=== PATIENT | female | born 1980 | race Caucasian/White ===

== ENCOUNTER 2017-06-27 04:23 | Inpatient (IN) | payer BC ==
[2017-06-27] MEDS ORDERED: DOCUSATE SODIUM 100 MG CAP PO (06:00)
[2017-06-27] MEDS: LIDOCAINE/MYLANTA 40 ML BTL PO (06:00)
[2017-06-27] MEDS ORDERED: NACL 0.9% 3 ML SYG IV (06:00)
[2017-06-27] MEDS: SOD CHLORIDE 0.9% 1,000 ML IV ×3 (06:32→22:06)
[2017-06-27] MEDS: PIPER-TAZO 3.375 GM IV (PMX) 100 ML IVPB (06:33)
[2017-06-27 06:44] LABS: ADD MAN DIFF? NO
[2017-06-27 06:50] LABS: WHITE BLOOD COUNT 6.3 10^3/ul (4.8-10.8)
[2017-06-27 06:50] LABS: BASOPHILS % 0.6 % (0.0-2.0); EOSINOPHILS # 0.1 10^3/ul (0.0-0.5); EOSINOPHILS % 1.4 % (0.0-7.0); HEMATOCRIT 34.4 % (37.0-47.0); HEMOGLOBIN 11.8 g/dl (12.0-16.0); LYMPHOCYTES # 2.7 10^3/ul (0.8-2.9); LYMPHOCYTES % 41.8 % (15.0-51.0); MEAN CORPUSCULAR HEMOGLOBIN 31.9 pg (29.0-33.0); MEAN CORPUSCULAR HGB CONC 34.3 g/dl (32.0-37.0); MEAN PLATELET VOLUME 10.8 fl (7.4-10.4); MONOCYTE # 0.6 10^3/ul (0.3-0.9); MONOCYTES % 8.7 % (0.0-11.0); NEUTROPHILS % 47.3 % (39.0-77.0); PLATELET COUNT 265 10^3/UL (140-415); RED CELL DISTRIBUTION WIDTH 12.7 % (11.5-14.5)
[2017-06-27 07:00] LABS: HEMOGLOBIN A1C 5.1 % (0-5.9)
[2017-06-27 07:09] LABS: ALANINE AMINOTRANSFERASE 69 IU/L (13-69); ALBUMIN 3.4 g/dl (3.3-4.9); ALBUMIN/GLOBULIN RATIO 1.06; ALKALINE PHOSPHATASE 336 IU/L (42-121); ANION GAP 11 (8-16); ASPARTATE AMINO TRANSFERASE 47 IU/L (15-46); BILIRUBIN,INDIRECT 0.4 mg/dl (0-1.1); BILIRUBIN,TOTAL 0.4 mg/dl (0.2-1.3); BLOOD UREA NITROGEN 13 mg/dl (7-20); CALCIUM 8.7 mg/dl (8.4-10.2); CARBON DIOXIDE 28 mmol/L (21-31); CHLORIDE 109 mmol/L (97-110); CREATININE 0.77 mg/dl (0.44-1.00); GLUCOSE 95 mg/dl (70-220); POTASSIUM 3.7 mmol/L (3.5-5.1); SODIUM 144 mmol/L (135-144); TOTAL PROTEIN 6.6 g/dl (6.1-8.1)
[2017-06-27] MEDS: HYDROmorphONE 0.5 MG/0.5 ML SYG IV ×3 (08:47→22:06)
[2017-06-27 09:05] LABS: GAMMA GLUTAMYL TRANSPEPTIDASE 583 IU/L (0-50); LIPASE 47 U/L (23-300)
[2017-06-27 19:32] LABS: PROTIME 13.3 Sec (11.9-14.9)
[2017-06-27 20:08] LABS: ALPHA FETOPROTEIN 3.25 IU/L (0.00-7.21)
[2017-06-27 20:09] LABS: CANCER ANTIGEN 19-9 < 1.4 U/ml (0.0-37.0)
[2017-06-28 05:13] LABS: ADD MAN DIFF? NO
[2017-06-28 05:18] LABS: WHITE BLOOD COUNT 4.6 10^3/ul (4.8-10.8)
[2017-06-28 05:18] LABS: BASOPHILS % 0.6 % (0.0-2.0); EOSINOPHILS # 0.1 10^3/ul (0.0-0.5); EOSINOPHILS % 2.6 % (0.0-7.0); HEMATOCRIT 33.6 % (37.0-47.0); HEMOGLOBIN 11.3 g/dl (12.0-16.0); LYMPHOCYTES # 2.2 10^3/ul (0.8-2.9); LYMPHOCYTES % 47.2 % (15.0-51.0); MEAN CORPUSCULAR HGB CONC 33.6 g/dl (32.0-37.0); MEAN CORPUSCULAR VOLUME 95.2 fl (82.0-101.0); MEAN PLATELET VOLUME 10.4 fl (7.4-10.4); MONOCYTE # 0.4 10^3/ul (0.3-0.9); MONOCYTES % 8.6 % (0.0-11.0); NEUTROPHIL # 1.9 10^3/ul (1.6-7.5); NEUTROPHILS % 40.8 % (39.0-77.0); PLATELET COUNT 229 10^3/UL (140-415); RED BLOOD COUNT 3.53 10^6/ul (4.20-5.40); RED CELL DISTRIBUTION WIDTH 12.4 % (11.5-14.5)
[2017-06-28 05:35] LABS: MAGNESIUM 1.9 mg/dl (1.7-2.5)
[2017-06-28 05:41] LABS: ALANINE AMINOTRANSFERASE 58 IU/L (13-69); ALBUMIN 3.1 g/dl (3.3-4.9); ALBUMIN/GLOBULIN RATIO 1.06; ALKALINE PHOSPHATASE 280 IU/L (42-121); ANION GAP 14 (8-16); ASPARTATE AMINO TRANSFERASE 31 IU/L (15-46); BILIRUBIN,INDIRECT 0.6 mg/dl (0-1.1); BILIRUBIN,TOTAL 0.6 mg/dl (0.2-1.3); BLOOD UREA NITROGEN 13 mg/dl (7-20); CALCIUM 8.7 mg/dl (8.4-10.2); CARBON DIOXIDE 25 mmol/L (21-31); CHLORIDE 108 mmol/L (97-110); CREATININE 0.75 mg/dl (0.44-1.00); GLUCOSE 85 mg/dl (70-220); POTASSIUM 4.5 mmol/L (3.5-5.1); SODIUM 142 mmol/L (135-144)
[2017-06-28] MEDS ORDERED: METOCLOPRAMIDE 10 MG INJ (07:00)
[2017-06-28] MEDS: SOD CHLORIDE 0.9% 1,000 ML IV (11:40)
[2017-06-28] MEDS: HYDROmorphONE 0.5 MG/0.5 ML SYG IV ×3 (11:41→21:27)
[2017-06-28] MEDS: CIPROFLOXACIN 400MG/D5W 200 ML IVPB ×2 (13:06→21:27)
[2017-06-28] MEDS: metroNIDAZOLE 500 MG/NS (PMX) 100 ML IVPB ×2 (14:25→21:58)
[2017-06-28] MEDS ORDERED: LIDOCAINE 2% (SDV) 5 ML INJ (18:02)
[2017-06-28] MEDS ORDERED: PROPOFOL 20 ML (18:02)
[2017-06-28] MEDS ORDERED: SUCCINYLCHOLINE CHLORIDE 100 MG/5 ML SYG IV (18:02)
[2017-06-28] MEDS ORDERED: MEPERIDINE 100 MG INJ (18:02)
[2017-06-28] MEDS ORDERED: NEOSTIGMINE 3 MG/3 ML SYRINGE (18:02)
[2017-06-28] MEDS ORDERED: ROCURONIUM 50 MG INJ (18:02)
[2017-06-28] MEDS ORDERED: GLYCOPYRROLATE 0.4 MG INJ (18:02)
[2017-06-28] MEDS ORDERED: EPHEDrine SULFATE 50 MG/5 ML SYG IV (19:30)
[2017-06-28] MEDS ORDERED: FENTAnyl 50 MCG/ML VIAL IV ×3 (19:30)
[2017-06-28] MEDS ORDERED: HYDROmorphONE (0.2 MG/ML) 10ML SYG IV ×3 (19:30)
[2017-06-28] MEDS ORDERED: LABETALOL HCL 20MG INJ IV (19:30)
[2017-06-28] MEDS ORDERED: ONDANSETRON 4 MG INJ IV (19:30)
[2017-06-28] MEDS ORDERED: hydrALAzine 20 MG INJ IV (19:30)
[2017-06-28] MEDS ORDERED: OXYCODONE/ACETAMINOPHEN (5/325) TAB PO ×2 (19:30)
[2017-06-28] MEDS ORDERED: MEPERIDINE 25 MG INJ IV (19:30)
[2017-06-28] MEDS ORDERED: METOCLOPRAMIDE 10 MG INJ IV (19:30)
[2017-06-28] MEDS ORDERED: MIDAZOLAM 1 MG/ML 2 ML INJ IV (19:30)
[2017-06-28] MEDS ORDERED: DIPHENHYDRAMINE 50 MG INJ IV (19:30)
[2017-06-28] MEDS ORDERED: NALOXONE (0.4 MG/ML) INJ (20:08)
[2017-06-28] MEDS: ONDANSETRON 4 MG INJ IV ×3 (20:26→22:30)
[2017-06-29] MEDS: HYDROmorphONE 0.5 MG/0.5 ML SYG IV ×7 (00:38→23:49)
[2017-06-29 05:01] LABS: ADD MAN DIFF? NO
[2017-06-29 05:05] LABS: ABNORMAL IP MESSAGE 1; BASOPHILS % 0.1 % (0.0-2.0); HEMATOCRIT 35.5 % (37.0-47.0); HEMOGLOBIN 12.3 g/dl (12.0-16.0); LYMPHOCYTES # 0.5 10^3/ul (0.8-2.9); LYMPHOCYTES % 5.3 % (15.0-51.0); MEAN CORPUSCULAR HEMOGLOBIN 31.9 pg (29.0-33.0); MEAN CORPUSCULAR HGB CONC 34.6 g/dl (32.0-37.0); MEAN PLATELET VOLUME 10.2 fl (7.4-10.4); MONOCYTE # 0.4 10^3/ul (0.3-0.9); MONOCYTES % 3.8 % (0.0-11.0); NEUTROPHIL # 9.3 10^3/ul (1.6-7.5); NEUTROPHILS % 90.4 % (39.0-77.0); PLATELET COUNT 260 10^3/UL (140-415); RED BLOOD COUNT 3.86 10^6/ul (4.20-5.40); RED CELL DISTRIBUTION WIDTH 11.8 % (11.5-14.5)
[2017-06-29 05:05] LABS: WHITE BLOOD COUNT 10.3 10^3/ul (4.8-10.8)
[2017-06-29] MEDS: metroNIDAZOLE 500 MG/NS (PMX) 100 ML IVPB ×3 (05:08→21:06)
[2017-06-29 05:15] LABS: POSITIVE DIFF @See below
[2017-06-29 05:24] LABS: ALANINE AMINOTRANSFERASE 70 IU/L (13-69); ALBUMIN 3.6 g/dl (3.3-4.9); ALBUMIN/GLOBULIN RATIO 1.09; ALKALINE PHOSPHATASE 310 IU/L (42-121); ANION GAP 19 (8-16); ASPARTATE AMINO TRANSFERASE 52 IU/L (15-46); BILIRUBIN,INDIRECT 0.5 mg/dl (0-1.1); BILIRUBIN,TOTAL 0.5 mg/dl (0.2-1.3); BLOOD UREA NITROGEN 11 mg/dl (7-20); CALCIUM 8.4 mg/dl (8.4-10.2); CARBON DIOXIDE 21 mmol/L (21-31); CHLORIDE 103 mmol/L (97-110); CREATININE 0.67 mg/dl (0.44-1.00); GLUCOSE 118 mg/dl (70-220); POTASSIUM 4.5 mmol/L (3.5-5.1); SODIUM 138 mmol/L (135-144); TOTAL PROTEIN 6.9 g/dl (6.1-8.1)
[2017-06-29 05:26] LABS: MAGNESIUM 1.6 mg/dl (1.7-2.5)
[2017-06-29] MEDS: ONDANSETRON 4 MG INJ IV (07:58)
[2017-06-29] MEDS: CIPROFLOXACIN 400MG/D5W 200 ML IVPB ×2 (07:58→21:06)
[2017-06-29] MEDS: METOCLOPRAMIDE 10 MG INJ IV ×3 (12:42→23:49)
[2017-06-29] MEDS: PANTOPRAZOLE 40 MG INJ IV ×2 (13:01→20:37)
[2017-06-29] MEDS: SOD CHLORIDE 0.9% 1,000 ML IV ×2 (14:16→23:49)
[2017-06-30] MEDS: HYDROmorphONE 0.5 MG/0.5 ML SYG IV ×6 (04:33→23:57)
[2017-06-30] MEDS: ONDANSETRON 4 MG INJ IV (04:33)
[2017-06-30] MEDS: metroNIDAZOLE 500 MG/NS (PMX) 100 ML IVPB ×3 (05:29→22:21)
[2017-06-30] MEDS: PANTOPRAZOLE 40 MG INJ IV ×2 (05:29→17:16)
[2017-06-30] MEDS: METOCLOPRAMIDE 10 MG INJ IV ×4 (05:29→23:57)
[2017-06-30 05:34] LABS: ADD MAN DIFF? NO
[2017-06-30 05:42] LABS: WHITE BLOOD COUNT 12.5 10^3/ul (4.8-10.8)
[2017-06-30 05:42] LABS: BASOPHILS % 0.1 % (0.0-2.0); HEMOGLOBIN 12.3 g/dl (12.0-16.0); LYMPHOCYTES # 0.6 10^3/ul (0.8-2.9); LYMPHOCYTES % 5.1 % (15.0-51.0); MEAN CORPUSCULAR HEMOGLOBIN 31.9 pg (29.0-33.0); MEAN CORPUSCULAR HGB CONC 34.2 g/dl (32.0-37.0); MEAN CORPUSCULAR VOLUME 93.3 fl (82.0-101.0); MEAN PLATELET VOLUME 10.3 fl (7.4-10.4); MONOCYTE # 0.8 10^3/ul (0.3-0.9); MONOCYTES % 6.1 % (0.0-11.0); NEUTROPHILS % 88.2 % (39.0-77.0); PLATELET COUNT 246 10^3/UL (140-415); RED BLOOD COUNT 3.86 10^6/ul (4.20-5.40); RED CELL DISTRIBUTION WIDTH 12.4 % (11.5-14.5)
[2017-06-30 06:00] LABS: MAGNESIUM 1.7 mg/dl (1.7-2.5)
[2017-06-30 06:11] LABS: ALANINE AMINOTRANSFERASE 54 IU/L (13-69); ALBUMIN 3.2 g/dl (3.3-4.9); ALBUMIN/GLOBULIN RATIO 1.03; ALKALINE PHOSPHATASE 264 IU/L (42-121); ANION GAP 11 (8-16); ASPARTATE AMINO TRANSFERASE 32 IU/L (15-46); BILIRUBIN,INDIRECT 0.5 mg/dl (0-1.1); BILIRUBIN,TOTAL 0.5 mg/dl (0.2-1.3); BLOOD UREA NITROGEN 6 mg/dl (7-20); CALCIUM 8.1 mg/dl (8.4-10.2); CARBON DIOXIDE 28 mmol/L (21-31); CHLORIDE 106 mmol/L (97-110); CREATININE 0.64 mg/dl (0.44-1.00); GLUCOSE 113 mg/dl (70-220); POTASSIUM 3.9 mmol/L (3.5-5.1); SODIUM 141 mmol/L (135-144); TOTAL PROTEIN 6.3 g/dl (6.1-8.1)
[2017-06-30] MEDS: CIPROFLOXACIN 400MG/D5W 200 ML IVPB ×2 (08:25→21:17)
[2017-06-30] MEDS: BARIUM SULF 2% 450 ML BTL (BERRY SMOOTHIE) PO (10:04)
[2017-06-30] MEDS: SOD CHLORIDE 0.9% 100 ML (13:55)
[2017-06-30] MEDS: IOHEXOL 300MG/ML 150 ML BTL (13:55)
[2017-06-30 15:41] LABS: AMYLASE 2084 U/L (11-123)
[2017-06-30] MEDS: SOD CHLORIDE 0.9% 1,000 ML IV (15:55)
[2017-06-30 15:57] LABS: LIPASE 6389 U/L (23-300)
[2017-07-01] MEDS: HYDROmorphONE 0.5 MG/0.5 ML SYG IV ×5 (04:33→21:23)
[2017-07-01] MEDS: SOD CHLORIDE 0.9% 1,000 ML IV ×3 (04:33→19:26)
[2017-07-01 05:19] LABS: ADD MAN DIFF? NO
[2017-07-01 05:22] LABS: BASOPHILS % 0.1 % (0.0-2.0); EOSINOPHILS % 0.2 % (0.0-7.0); HEMOGLOBIN 11.8 g/dl (12.0-16.0); LYMPHOCYTES % 9.4 % (15.0-51.0); MEAN CORPUSCULAR HEMOGLOBIN 31.9 pg (29.0-33.0); MEAN CORPUSCULAR HGB CONC 33.7 g/dl (32.0-37.0); MEAN CORPUSCULAR VOLUME 94.6 fl (82.0-101.0); MEAN PLATELET VOLUME 10.5 fl (7.4-10.4); MONOCYTE # 0.7 10^3/ul (0.3-0.9); MONOCYTES % 6.7 % (0.0-11.0); NEUTROPHIL # 8.9 10^3/ul (1.6-7.5); NEUTROPHILS % 83.1 % (39.0-77.0); PLATELET COUNT 217 10^3/UL (140-415); RED CELL DISTRIBUTION WIDTH 12.4 % (11.5-14.5)
[2017-07-01 05:22] LABS: WHITE BLOOD COUNT 10.7 10^3/ul (4.8-10.8)
[2017-07-01] MEDS: PANTOPRAZOLE 40 MG INJ IV ×2 (05:26→18:18)
[2017-07-01] MEDS: METOCLOPRAMIDE 10 MG INJ IV ×3 (05:26→17:37)
[2017-07-01] MEDS: metroNIDAZOLE 500 MG/NS (PMX) 100 ML IVPB ×3 (05:26→21:25)
[2017-07-01 05:44] LABS: MAGNESIUM 1.8 mg/dl (1.7-2.5)
[2017-07-01 05:48] LABS: ALANINE AMINOTRANSFERASE 45 IU/L (13-69); ALKALINE PHOSPHATASE 226 IU/L (42-121); ANION GAP 10 (8-16); ASPARTATE AMINO TRANSFERASE 28 IU/L (15-46); BILIRUBIN,INDIRECT 0.7 mg/dl (0-1.1); BILIRUBIN,TOTAL 0.7 mg/dl (0.2-1.3); BLOOD UREA NITROGEN 4 mg/dl (7-20); CALCIUM 7.8 mg/dl (8.4-10.2); CARBON DIOXIDE 28 mmol/L (21-31); CHLORIDE 104 mmol/L (97-110); CREATININE 0.57 mg/dl (0.44-1.00); GLUCOSE 94 mg/dl (70-220); POTASSIUM 3.3 mmol/L (3.5-5.1); SODIUM 139 mmol/L (135-144)
[2017-07-01 05:49] LABS: LIPASE 1352 U/L (23-300)
[2017-07-01 05:49] LABS: AMYLASE 699 U/L (11-123)
[2017-07-01] MEDS: CIPROFLOXACIN 400MG/D5W 200 ML IVPB ×2 (08:55→20:29)
[2017-07-01] MEDS: SOD CHLORIDE 0.9% 100 ML (16:45)
[2017-07-01] MEDS: POTASSIUM CHLORIDE 100 ML IVPB ×2 (16:45→22:54)
[2017-07-01] MEDS: IOHEXOL 300MG/ML 150 ML BTL (16:46)
[2017-07-02] MEDS: METOCLOPRAMIDE 10 MG INJ IV ×5 (00:30→23:03)
[2017-07-02] MEDS: HYDROmorphONE 0.5 MG/0.5 ML SYG IV ×6 (01:44→23:14)
[2017-07-02] MEDS: SOD CHLORIDE 0.9% 1,000 ML IV ×4 (03:11→19:26)
[2017-07-02 05:31] LABS: ADD MAN DIFF? NO; BASOPHILS % 0.3 % (0.0-2.0); EOSINOPHILS # 0.1 10^3/ul (0.0-0.5); EOSINOPHILS % 0.7 % (0.0-7.0); LYMPHOCYTES % 9.5 % (15.0-51.0); MEAN CORPUSCULAR HEMOGLOBIN 31.6 pg (29.0-33.0); MEAN CORPUSCULAR HGB CONC 33.3 g/dl (32.0-37.0); MEAN CORPUSCULAR VOLUME 94.8 fl (82.0-101.0); MEAN PLATELET VOLUME 10.3 fl (7.4-10.4); MONOCYTE # 0.8 10^3/ul (0.3-0.9); MONOCYTES % 7.7 % (0.0-11.0); NEUTROPHIL # 8.1 10^3/ul (1.6-7.5); NEUTROPHILS % 81.3 % (39.0-77.0); PLATELET COUNT 208 10^3/UL (140-415); RED BLOOD COUNT 3.48 10^6/ul (4.20-5.40); RED CELL DISTRIBUTION WIDTH 12.2 % (11.5-14.5)
[2017-07-02] MEDS: metroNIDAZOLE 500 MG/NS (PMX) 100 ML IVPB ×3 (05:35→21:54)
[2017-07-02] MEDS: PANTOPRAZOLE 40 MG INJ IV ×2 (05:35→18:10)
[2017-07-02 05:59] LABS: AMYLASE 210 U/L (11-123)
[2017-07-02 05:59] LABS: LIPASE 611 U/L (23-300)
[2017-07-02 06:00] LABS: ALANINE AMINOTRANSFERASE 44 IU/L (13-69); ALBUMIN 2.8 g/dl (3.3-4.9); ALKALINE PHOSPHATASE 207 IU/L (42-121); ANION GAP 10 (8-16); ASPARTATE AMINO TRANSFERASE 24 IU/L (15-46); BILIRUBIN,INDIRECT 0.4 mg/dl (0-1.1); BILIRUBIN,TOTAL 0.4 mg/dl (0.2-1.3); BLOOD UREA NITROGEN 7 mg/dl (7-20); CALCIUM 8.1 mg/dl (8.4-10.2); CARBON DIOXIDE 30 mmol/L (21-31); CHLORIDE 104 mmol/L (97-110); CREATININE 0.53 mg/dl (0.44-1.00); GLUCOSE 82 mg/dl (70-220); POTASSIUM 4.4 mmol/L (3.5-5.1); SODIUM 140 mmol/L (135-144); TOTAL PROTEIN 5.6 g/dl (6.1-8.1)
[2017-07-02 06:41] LABS: MAGNESIUM 1.9 mg/dl (1.7-2.5)
[2017-07-02] MEDS: CIPROFLOXACIN 400MG/D5W 200 ML IVPB ×2 (09:50→20:31)
[2017-07-02] MEDS: ACETAMINOPHEN 325 MG TAB PO (12:39)
[2017-07-02] MEDS: ONDANSETRON 4 MG INJ IV (21:27)
[2017-07-03] MEDS: SOD CHLORIDE 0.9% 1,000 ML IV ×4 (02:19→23:39)
[2017-07-03] MEDS: HYDROmorphONE 0.5 MG/0.5 ML SYG IV ×5 (04:15→22:11)
[2017-07-03] MEDS: PANTOPRAZOLE 40 MG INJ IV ×2 (05:05→17:14)
[2017-07-03] MEDS: METOCLOPRAMIDE 10 MG INJ IV ×4 (05:05→23:38)
[2017-07-03] MEDS: metroNIDAZOLE 500 MG/NS (PMX) 100 ML IVPB ×3 (05:05→22:11)
[2017-07-03 06:24] LABS: AMYLASE 114 U/L (11-123)
[2017-07-03 06:24] LABS: LIPASE 677 U/L (23-300)
[2017-07-03 06:31] LABS: ALANINE AMINOTRANSFERASE 38 IU/L (13-69); ALBUMIN 2.7 g/dl (3.3-4.9); ALBUMIN/GLOBULIN RATIO 0.96; ALKALINE PHOSPHATASE 225 IU/L (42-121); ANION GAP 10 (8-16); ASPARTATE AMINO TRANSFERASE 20 IU/L (15-46); BILIRUBIN,INDIRECT 0.2 mg/dl (0-1.1); BILIRUBIN,TOTAL 0.2 mg/dl (0.2-1.3); BLOOD UREA NITROGEN 7 mg/dl (7-20); CALCIUM 7.9 mg/dl (8.4-10.2); CARBON DIOXIDE 28 mmol/L (21-31); CHLORIDE 106 mmol/L (97-110); GLUCOSE 93 mg/dl (70-220); POTASSIUM 3.5 mmol/L (3.5-5.1); SODIUM 140 mmol/L (135-144); TOTAL PROTEIN 5.5 g/dl (6.1-8.1)
[2017-07-03] MEDS: CIPROFLOXACIN 400MG/D5W 200 ML IVPB ×2 (08:13→20:15)
[2017-07-03] MEDS: ACETAMINOPHEN 325 MG TAB PO (10:27)
[2017-07-03] MEDS: HEPARIN 5,000 UNIT/0.5 ML VIAL SC (20:17)
[2017-07-04] MEDS: HYDROmorphONE 0.5 MG/0.5 ML SYG IV ×5 (03:25→21:18)
[2017-07-04] MEDS: ONDANSETRON 4 MG INJ IV (03:25)
[2017-07-04] MEDS: SOD CHLORIDE 0.9% 1,000 ML IV ×3 (03:26→20:05)
[2017-07-04 05:19] LABS: ADD MAN DIFF? NO
[2017-07-04 05:20] LABS: WHITE BLOOD COUNT 7.9 10^3/ul (4.8-10.8)
[2017-07-04 05:20] LABS: BASOPHILS % 0.3 % (0.0-2.0); EOSINOPHILS # 0.1 10^3/ul (0.0-0.5); HEMOGLOBIN 10.1 g/dl (12.0-16.0); LYMPHOCYTES # 0.9 10^3/ul (0.8-2.9); MEAN CORPUSCULAR HEMOGLOBIN 31.5 pg (29.0-33.0); MEAN CORPUSCULAR HGB CONC 33.7 g/dl (32.0-37.0); MEAN CORPUSCULAR VOLUME 93.5 fl (82.0-101.0); MEAN PLATELET VOLUME 10.3 fl (7.4-10.4); MONOCYTE # 0.6 10^3/ul (0.3-0.9); NEUTROPHIL # 6.3 10^3/ul (1.6-7.5); NEUTROPHILS % 79.3 % (39.0-77.0); PLATELET COUNT 234 10^3/UL (140-415); RED BLOOD COUNT 3.21 10^6/ul (4.20-5.40); RED CELL DISTRIBUTION WIDTH 11.9 % (11.5-14.5)
[2017-07-04] MEDS: METOCLOPRAMIDE 10 MG INJ IV ×3 (05:29→20:04)
[2017-07-04] MEDS: PANTOPRAZOLE 40 MG INJ IV ×2 (05:29→17:57)
[2017-07-04] MEDS: metroNIDAZOLE 500 MG/NS (PMX) 100 ML IVPB ×3 (05:29→21:17)
[2017-07-04 05:50] LABS: ANION GAP 11 (8-16); BLOOD UREA NITROGEN 6 mg/dl (7-20); CALCIUM 8.1 mg/dl (8.4-10.2); CARBON DIOXIDE 27 mmol/L (21-31); CHLORIDE 106 mmol/L (97-110); CREATININE 0.46 mg/dl (0.44-1.00); GLUCOSE 86 mg/dl (70-220); POTASSIUM 3.6 mmol/L (3.5-5.1); SODIUM 140 mmol/L (135-144)
[2017-07-04 05:57] LABS: LIPASE 499 U/L (23-300)
[2017-07-04 05:57] LABS: AMYLASE 80 U/L (11-123)
[2017-07-04] MEDS: CIPROFLOXACIN 400MG/D5W 200 ML IVPB ×2 (08:48→20:05)
[2017-07-04] MEDS: HEPARIN 5,000 UNIT/0.5 ML VIAL SC ×2 (08:50→21:20)
[2017-07-04] MEDS ORDERED: ONDANSETRON 4 MG INJ IV (12:00)
[2017-07-04] MEDS: ONDANSETRON INJ 8 MG in SOD CHLORIDE 0.9% 50 ML IV (12:40)
[2017-07-05] MEDS: ONDANSETRON INJ 8 MG in SOD CHLORIDE 0.9% 50 ML IV ×3 (00:34→20:17)
[2017-07-05] MEDS: HYDROmorphONE 0.5 MG/0.5 ML SYG IV ×5 (01:27→20:17)
[2017-07-05] MEDS: SOD CHLORIDE 0.9% 1,000 ML IV ×2 (03:26→09:07)
[2017-07-05 05:16] LABS: ADD MAN DIFF? NO
[2017-07-05 05:22] LABS: WHITE BLOOD COUNT 7.8 10^3/ul (4.8-10.8)
[2017-07-05 05:22] LABS: BASOPHILS % 0.3 % (0.0-2.0); EOSINOPHILS # 0.1 10^3/ul (0.0-0.5); EOSINOPHILS % 0.8 % (0.0-7.0); HEMATOCRIT 29.7 % (37.0-47.0); HEMOGLOBIN 10.1 g/dl (12.0-16.0); LYMPHOCYTES # 1.4 10^3/ul (0.8-2.9); LYMPHOCYTES % 17.4 % (15.0-51.0); MEAN CORPUSCULAR HEMOGLOBIN 31.8 pg (29.0-33.0); MEAN CORPUSCULAR VOLUME 93.4 fl (82.0-101.0); MEAN PLATELET VOLUME 10.4 fl (7.4-10.4); MONOCYTE # 0.6 10^3/ul (0.3-0.9); MONOCYTES % 7.1 % (0.0-11.0); NEUTROPHIL # 5.8 10^3/ul (1.6-7.5); NEUTROPHILS % 73.9 % (39.0-77.0); PLATELET COUNT 248 10^3/UL (140-415); RED BLOOD COUNT 3.18 10^6/ul (4.20-5.40); RED CELL DISTRIBUTION WIDTH 12.2 % (11.5-14.5)
[2017-07-05] MEDS: PANTOPRAZOLE 40 MG INJ IV ×2 (05:40→18:08)
[2017-07-05] MEDS: metroNIDAZOLE 500 MG/NS (PMX) 100 ML IVPB ×2 (05:41→13:49)
[2017-07-05] MEDS: METOCLOPRAMIDE 10 MG INJ IV ×3 (05:42→23:58)
[2017-07-05 05:51] LABS: ANION GAP 14 (8-16); BLOOD UREA NITROGEN 6 mg/dl (7-20); CALCIUM 7.9 mg/dl (8.4-10.2); CARBON DIOXIDE 22 mmol/L (21-31); CHLORIDE 105 mmol/L (97-110); CREATININE 0.52 mg/dl (0.44-1.00); GLUCOSE 79 mg/dl (70-220); POTASSIUM 3.4 mmol/L (3.5-5.1); SODIUM 138 mmol/L (135-144)
[2017-07-05] MEDS: CIPROFLOXACIN 400MG/D5W 200 ML IVPB (09:05)
[2017-07-05] MEDS: HEPARIN 5,000 UNIT/0.5 ML VIAL SC ×2 (09:06→20:30)
[2017-07-05] MEDS: POTASSIUM CHLORIDE 10 MEQ in DEXTROSE 5%-0.225% NACL 1,000 ML IV (15:12)
[2017-07-05] MEDS: TRIMETHOBENZAMIDE 100 MG/ML VIAL IM (18:12)
[2017-07-06] MEDS: HYDROmorphONE 0.5 MG/0.5 ML SYG IV ×4 (01:01→21:58)
[2017-07-06] MEDS: POTASSIUM CHLORIDE 10 MEQ in DEXTROSE 5%-0.225% NACL 1,000 ML IV ×3 (01:02→20:39)
[2017-07-06] MEDS: PANTOPRAZOLE 40 MG INJ IV ×2 (05:23→20:33)
[2017-07-06] MEDS: ONDANSETRON INJ 8 MG in SOD CHLORIDE 0.9% 50 ML IV (05:31)
[2017-07-06 06:03] LABS: ADD MAN DIFF? NO
[2017-07-06 06:08] LABS: BASOPHILS % 0.4 % (0.0-2.0); EOSINOPHILS # 0.1 10^3/ul (0.0-0.5); EOSINOPHILS % 1.5 % (0.0-7.0); HEMATOCRIT 30.5 % (37.0-47.0); HEMOGLOBIN 10.4 g/dl (12.0-16.0); LYMPHOCYTES # 1.7 10^3/ul (0.8-2.9); LYMPHOCYTES % 21.8 % (15.0-51.0); MEAN CORPUSCULAR HEMOGLOBIN 31.1 pg (29.0-33.0); MEAN CORPUSCULAR HGB CONC 34.1 g/dl (32.0-37.0); MEAN CORPUSCULAR VOLUME 91.3 fl (82.0-101.0); MEAN PLATELET VOLUME 10.6 fl (7.4-10.4); MONOCYTE # 0.7 10^3/ul (0.3-0.9); MONOCYTES % 8.9 % (0.0-11.0); NEUTROPHIL # 5.2 10^3/ul (1.6-7.5); NEUTROPHILS % 66.5 % (39.0-77.0); PLATELET COUNT 256 10^3/UL (140-415); RED BLOOD COUNT 3.34 10^6/ul (4.20-5.40); RED CELL DISTRIBUTION WIDTH 12.3 % (11.5-14.5)
[2017-07-06 06:08] LABS: WHITE BLOOD COUNT 7.8 10^3/ul (4.8-10.8)
[2017-07-06 06:30] LABS: LIPASE 261 U/L (23-300)
[2017-07-06 06:34] LABS: ANION GAP 9 (8-16); BLOOD UREA NITROGEN 3 mg/dl (7-20); CARBON DIOXIDE 30 mmol/L (21-31); CHLORIDE 103 mmol/L (97-110); CREATININE 0.54 mg/dl (0.44-1.00); GLUCOSE 110 mg/dl (70-220); POTASSIUM 3.2 mmol/L (3.5-5.1); SODIUM 139 mmol/L (135-144)
[2017-07-06] MEDS: HEPARIN 5,000 UNIT/0.5 ML VIAL SC (08:29)
[2017-07-06 12:00] LABS: INR 1.29; PROTIME 16.3 Sec (11.9-14.9); PT RATIO 1.3
[2017-07-06] MEDS: POTASSIUM CHLORIDE 100 ML IVPB ×2 (14:27→22:21)
[2017-07-06] MEDS ORDERED: BUPIVACAINE 0.25%/EPI (SDV) 30 ML INJ (16:35)
[2017-07-06] MEDS ORDERED: CEFAZOLIN 1 GM INJ (16:49)
[2017-07-06] MEDS ORDERED: ROCURONIUM 50 MG INJ (16:49)
[2017-07-06] MEDS ORDERED: PROPOFOL 20 ML (16:49)
[2017-07-06] MEDS ORDERED: NEOSTIGMINE 3 MG/3 ML SYRINGE (16:49)
[2017-07-06] MEDS ORDERED: GLYCOPYRROLATE 0.4 MG INJ (16:49)
[2017-07-06] MEDS ORDERED: DEXAMETHASONE 4 MG/ML 1 ML INJ (16:52)
[2017-07-06] MEDS ORDERED: MIDAZOLAM 1 MG/ML 2 ML INJ (16:52)
[2017-07-06] MEDS ORDERED: ONDANSETRON 4 MG INJ (16:52)
[2017-07-06] MEDS ORDERED: FENTAnyl 50 MCG/ML VIAL ×3 (16:52→17:50)
[2017-07-06] MEDS: CEFAZOLIN 2 GM/50 ML (PMX) 50 ML IVPB (17:11)
[2017-07-06] MEDS ORDERED: OXYCODONE/ACETAMINOPHEN (5/325) TAB PO ×2 (17:30)
[2017-07-06] MEDS ORDERED: LABETALOL HCL 20MG INJ IV (17:30)
[2017-07-06] MEDS ORDERED: EPHEDrine SULFATE 50 MG/5 ML SYG IV (17:30)
[2017-07-06] MEDS ORDERED: hydrALAzine 20 MG INJ IV (17:30)
[2017-07-06] MEDS ORDERED: TRIMETHOBENZAMIDE 100 MG/ML VIAL IM (17:30)
[2017-07-06] MEDS ORDERED: IPRATROPIUM (NEB) 0.5 MG/2.5 ML AMP HHN (17:30)
[2017-07-06] MEDS ORDERED: FENTAnyl 50 MCG/ML VIAL IV ×3 (17:30)
[2017-07-06] MEDS ORDERED: ALBUTEROL 0.083% (NEB) 2.5 MG/3 ML AMP HHN (17:30)
[2017-07-06] MEDS ORDERED: DIPHENHYDRAMINE 50 MG INJ IV (17:30)
[2017-07-06] MEDS ORDERED: HYDROmorphONE (0.2 MG/ML) 10ML SYG IV ×2 (17:30)
[2017-07-06] MEDS ORDERED: MIDAZOLAM 1 MG/ML 2 ML INJ IV (17:30)
[2017-07-06] MEDS: BUPIVACAINE 0.25%/EPI (SDV) 30 ML INJ INJ (17:35)
[2017-07-06] MEDS ORDERED: METOCLOPRAMIDE 10 MG INJ (18:39)
[2017-07-06] MEDS: ONDANSETRON 4 MG INJ IV (18:58)
[2017-07-06] MEDS: HYDROmorphONE (0.2 MG/ML) 10ML SYG IV (18:58)
[2017-07-06] MEDS: MEPERIDINE 25 MG INJ IV (18:59)
[2017-07-07] MEDS: ACETAMINOPHEN 325 MG TAB PO (00:43)
[2017-07-07] MEDS: POTASSIUM CHLORIDE 100 ML IVPB ×2 (00:43→04:09)
[2017-07-07] MEDS: HYDROmorphONE 0.5 MG/0.5 ML SYG IV ×5 (02:49→23:14)
[2017-07-07 05:03] LABS: ADD MAN DIFF? NO
[2017-07-07 05:06] LABS: ABNORMAL IP MESSAGE 1; BASOPHILS % 0.1 % (0.0-2.0); HEMATOCRIT 34.5 % (37.0-47.0); HEMOGLOBIN 11.7 g/dl (12.0-16.0); LYMPHOCYTES # 0.5 10^3/ul (0.8-2.9); LYMPHOCYTES % 4.6 % (15.0-51.0); MEAN CORPUSCULAR HEMOGLOBIN 30.8 pg (29.0-33.0); MEAN CORPUSCULAR HGB CONC 33.9 g/dl (32.0-37.0); MEAN CORPUSCULAR VOLUME 90.8 fl (82.0-101.0); MEAN PLATELET VOLUME 9.6 fl (7.4-10.4); MONOCYTE # 0.2 10^3/ul (0.3-0.9); MONOCYTES % 2.2 % (0.0-11.0); NEUTROPHIL # 9.2 10^3/ul (1.6-7.5); NEUTROPHILS % 92.1 % (39.0-77.0); PLATELET COUNT 341 10^3/UL (140-415); RED CELL DISTRIBUTION WIDTH 12.3 % (11.5-14.5)
[2017-07-07 05:06] LABS: WHITE BLOOD COUNT 9.9 10^3/ul (4.8-10.8)
[2017-07-07 05:19] LABS: POSITIVE DIFF @See below
[2017-07-07] MEDS: POTASSIUM CHLORIDE 10 MEQ in DEXTROSE 5%-0.225% NACL 1,000 ML IV ×2 (05:30→16:53)
[2017-07-07 05:37] LABS: ANION GAP 11 (8-16); BLOOD UREA NITROGEN 2 mg/dl (7-20); CALCIUM 8.7 mg/dl (8.4-10.2); CARBON DIOXIDE 31 mmol/L (21-31); CHLORIDE 104 mmol/L (97-110); CREATININE 0.49 mg/dl (0.44-1.00); GLUCOSE 158 mg/dl (70-220); POTASSIUM 4.5 mmol/L (3.5-5.1); SODIUM 141 mmol/L (135-144)
[2017-07-07] MEDS: PANTOPRAZOLE 40 MG INJ IV ×2 (05:49→18:35)
[2017-07-07] MEDS: SENNA TAB PO ×2 (12:29→21:11)
[2017-07-07] MEDS: DOCUSATE SODIUM 100 MG CAP PO ×2 (12:30→21:11)
[2017-07-07] MEDS: METOCLOPRAMIDE 10 MG INJ IV ×3 (12:30→23:07)
[2017-07-08] MEDS: POTASSIUM CHLORIDE 10 MEQ in DEXTROSE 5%-0.225% NACL 1,000 ML IV ×3 (02:48→14:41)
[2017-07-08] MEDS: HYDROmorphONE 0.5 MG/0.5 ML SYG IV ×5 (04:07→22:15)
[2017-07-08 06:04] LABS: ADD MAN DIFF? NO
[2017-07-08 06:15] LABS: BASOPHILS % 0.3 % (0.0-2.0); EOSINOPHILS # 0.1 10^3/ul (0.0-0.5); EOSINOPHILS % 0.7 % (0.0-7.0); HEMATOCRIT 33.5 % (37.0-47.0); HEMOGLOBIN 11.3 g/dl (12.0-16.0); LYMPHOCYTES # 1.8 10^3/ul (0.8-2.9); LYMPHOCYTES % 23.4 % (15.0-51.0); MEAN CORPUSCULAR HEMOGLOBIN 31.5 pg (29.0-33.0); MEAN CORPUSCULAR HGB CONC 33.7 g/dl (32.0-37.0); MEAN CORPUSCULAR VOLUME 93.3 fl (82.0-101.0); MEAN PLATELET VOLUME 9.9 fl (7.4-10.4); MONOCYTE # 0.7 10^3/ul (0.3-0.9); MONOCYTES % 9.7 % (0.0-11.0); NEUTROPHILS % 65.5 % (39.0-77.0); PLATELET COUNT 311 10^3/UL (140-415); RED BLOOD COUNT 3.59 10^6/ul (4.20-5.40); RED CELL DISTRIBUTION WIDTH 12.7 % (11.5-14.5)
[2017-07-08 06:15] LABS: WHITE BLOOD COUNT 7.6 10^3/ul (4.8-10.8)
[2017-07-08] MEDS: METOCLOPRAMIDE 10 MG INJ IV ×4 (06:23→23:27)
[2017-07-08] MEDS: PANTOPRAZOLE 40 MG INJ IV ×2 (06:23→17:38)
[2017-07-08 06:29] LABS: ANION GAP 12 (8-16); BLOOD UREA NITROGEN 3 mg/dl (7-20); CALCIUM 8.4 mg/dl (8.4-10.2); CARBON DIOXIDE 32 mmol/L (21-31); CHLORIDE 102 mmol/L (97-110); CREATININE 0.57 mg/dl (0.44-1.00); GLUCOSE 107 mg/dl (70-220); POTASSIUM 3.5 mmol/L (3.5-5.1); SODIUM 142 mmol/L (135-144)
[2017-07-08] MEDS: DOCUSATE SODIUM 100 MG CAP PO ×2 (08:58→20:45)
[2017-07-08] MEDS: SENNA TAB PO ×2 (08:58→20:45)
[2017-07-08] MEDS: MEGESTROL (40 MG/ML) 10ML CUP PO (17:39)
[2017-07-09] MEDS: POTASSIUM CHLORIDE 10 MEQ in DEXTROSE 5%-0.225% NACL 1,000 ML IV ×2 (01:46→08:36)
[2017-07-09] MEDS: HYDROmorphONE 0.5 MG/0.5 ML SYG IV ×3 (02:12→10:27)
[2017-07-09] MEDS: METOCLOPRAMIDE 10 MG INJ IV ×2 (05:52→12:46)
[2017-07-09] MEDS: PANTOPRAZOLE 40 MG INJ IV (05:52)
[2017-07-09] MEDS: DOCUSATE SODIUM 100 MG CAP PO (08:36)
[2017-07-09] MEDS: BISACODYL (EC) 5 MG TAB PO (08:36)
[2017-07-09] MEDS: SENNA TAB PO (08:36)
[2017-07-09] MEDS: HYDROmorphONE 4 MG TAB PO (13:21)
== END 2017-07-09 15:45 | disposition home or self-care (01) | DRG 420 ==
LOC: MS1 07-04 00:11
PROC: 0FB04ZX Excision of Liver, Percutaneous Endoscopic Approach, Diagnostic (ICD-10-PCS; principal; 2017-06-28 17:56)
PROC: 0FB Hepatobiliary System and Pancreas, Excision (ICD-10-PCS; 2017-06-28 17:56)
PROC: 0FB78ZX Excision of Common Hepatic Duct, Via Natural or Artificial Opening Endoscopic, Diagnostic (ICD-10-PCS; 2017-06-28 17:56)
PROC: 0F758DZ Dilation of Right Hepatic Duct with Intraluminal Device, Via Natural or Artificial Opening Endoscopic (ICD-10-PCS; 2017-06-28 17:56)
PROC: 0DBU4ZX Excision of Omentum, Percutaneous Endoscopic Approach, Diagnostic (ICD-10-PCS; 2017-06-28 17:56)
PROC: 0D9W4ZX Drainage of Peritoneum, Percutaneous Endoscopic Approach, Diagnostic (ICD-10-PCS; 2017-06-28 17:56)
DX: C22.8 Malignant neoplasm of liver, primary, unspecified as to type (principal); K85.90 Acute pancreatitis without necrosis or infection, unspecified; K83.1 Obstruction of bile duct; K83.0 Cholangitis; C24.0 Malignant neoplasm of extrahepatic bile duct; E87.6 Hypokalemia; K76.89 Other specified diseases of liver; K75.81 Nonalcoholic steatohepatitis (NASH); R63.4 Abnormal weight loss; Z68.23 Body mass index [BMI] 23.0-23.9, adult
CPT/HCPCS: 71270; 74177; 74181; 74330; 80048; 80053; 82105; 82150; 82977; 83036; 83690; 83735; 84443; 85025; 85610; 85730; 86301; 86850; 86900; 86901; 86920; 88104; 88305; 88307; 88313; 88331; 88341; 88342; 93971

== ENCOUNTER 2017-10-01 22:57 | Inpatient (IN) | payer BC ==
[2017-10-01] MEDS: SODIUM CHLORIDE 0.9% 1L BAG IV* (23:53)
[2017-10-01 23:56] LABS: WHITE BLOOD COUNT 2.3 10^3/ul (4.8-10.8)
[2017-10-01 23:56] LABS: ABNORMAL IP MESSAGE 1; HEMATOCRIT 36.4 % (37.0-47.0); HEMOGLOBIN 12.2 g/dl (12.0-16.0); MEAN CORPUSCULAR HGB CONC 33.5 g/dl (32.0-37.0); MEAN CORPUSCULAR VOLUME 95.5 fl (82.0-101.0); MEAN PLATELET VOLUME 8.7 fl (7.4-10.4); NUCLEATED RED BLOOD CELLS% 2.2 /100WBC (0.0-0.0); PLATELET COUNT 539 10^3/UL (140-415); RED BLOOD COUNT 3.81 10^6/ul (4.20-5.40); RED CELL DISTRIBUTION WIDTH 15.6 % (11.5-14.5)
[2017-10-01 23:59] LABS: ADD MAN DIFF? YES; POSITIVE DIFF @See below
[2017-10-02 00:04] LABS: ADD UMIC NO; UR ASCORBIC ACID NEGATIVE (NEGATIVE); UR BACTERIA FEW /HPF (NONE SEEN); UR BILIRUBIN (Dip) NEGATIVE (NEGATIVE); UR BLOOD (Dip) NEGATIVE (NEGATIVE); UR CLARITY SLIGHTLY CLOUDY (CLEAR); UR COLOR YELLOW (YELLOW); UR GLUCOSE (Dip) NEGATIVE (NEGATIVE); UR KETONES (Dip) NEGATIVE (NEGATIVE); UR LEUKOCYTE ESTERASE (Dip) NEGATIVE Leu/ul (NEGATIVE); UR MUCUS FEW /HPF (NONE SEEN); UR NITRITE (Dip) NEGATIVE (NEGATIVE); UR RBC 2 /HPF (0-5); UR SPECIFIC GRAVITY (Dip) 1.023 (1.003-1.030); UR SQUAMOUS EPITHELIAL CELL FEW /HPF (FEW); UR TOTAL PROTEIN (Dip) NEGATIVE (NEGATIVE); UR UROBILINOGEN (Dip) 1+ mg/dL (NEGATIVE); UR WBC 7 /HPF (0-5)
[2017-10-02 00:12] LABS: LACTIC ACID 1.4 mmol/L (0.5-2.0)
[2017-10-02 00:14] LABS: ALANINE AMINOTRANSFERASE 184 IU/L (13-69); ALBUMIN 4.2 g/dl (3.3-4.9); ALKALINE PHOSPHATASE 411 IU/L (42-121); ANION GAP 13 (8-16); ASPARTATE AMINO TRANSFERASE 77 IU/L (15-46); BILIRUBIN,INDIRECT 0.5 mg/dl (0-1.1); BILIRUBIN,TOTAL 0.5 mg/dl (0.2-1.3); BLOOD UREA NITROGEN 8 mg/dl (7-20); CALCIUM 9.1 mg/dl (8.4-10.2); CARBON DIOXIDE 28 mmol/L (21-31); CHLORIDE 100 mmol/L (97-110); CREATININE 0.69 mg/dl (0.44-1.00); GLUCOSE 120 mg/dl (70-220); POTASSIUM 4.1 mmol/L (3.5-5.1); SODIUM 137 mmol/L (135-144); TOTAL PROTEIN 7.7 g/dl (6.1-8.1)
[2017-10-02 00:17] LABS: INR 1.07; PT RATIO 1.1
[2017-10-02 00:19] LABS: PARTIAL THROMBOPLASTIN TIME 29.2 Sec (25.0-35.0)
[2017-10-02 00:25] LABS: TROPONIN-I < 0.010 ng/ml (0.000-0.120)
[2017-10-02 01:35] LABS: ANISOCYTOSIS 1+ (0-0); BAND NEUTROPHILS #M 0.5 10^3/ul (0.0-0.6); BAND NEUTROPHILS % (M) 24 % (0-4); ERYTHROBLAST% (NRBC) (M) 1 % (0-0); GIANT THROMBO% (M) 2 % (0-0); LYMPHOCYTES #M 0.8 10^3/ul (0.8-2.9); LYMPHOCYTES % (M) 36 % (15-51); METAMYELOCYTES %M 2 % (0-0); MONOCYTE #M 0.3 10^3/ul (0.3-0.9); MONOCYTES % (M) 16 % (0-11); MYELOCYTES % (M) 2 % (0-0); PLASMAC%(M) 1 % (0); PLATELET ESTIMATE NORMAL; PLATELET MORPHOLOGY COMMENT @See below; POLYCHROMASIA 1+ (0-0); REACTIVE LYMPHOCYTES #M 0.1 10^3/ul (0.0-0.0); REACTIVE LYMPHOCYTES% (M) 5 % (0-0); SEG NEUT #M 0.3 10^3/ul (1.6-7.5); SEGMENTED NEUTROPHILS (M) % 14 % (39-77); SMUDGE%M 2 % (0-0)
[2017-10-02] MEDS: CEFEPIME 2GM/50 ML (PMX) 50 ML IVPB (01:39)
[2017-10-02 02:02] LABS: LACTIC ACID 0.9 mmol/L (0.5-2.0)
[2017-10-02] MEDS: VANCOMYCIN 1 GM (PMX) 250 ML IVPB (02:22)
[2017-10-02] MEDS ORDERED: VANCOMYCIN IV PER PHARMACY XX (02:30)
[2017-10-02] MEDS ORDERED: BISACODYL (EC) 5 MG TAB PO (02:30)
[2017-10-02] MEDS ORDERED: NACL 0.9% 3 ML SYG IV (02:30)
[2017-10-02] MEDS ORDERED: DOCUSATE SODIUM 100 MG CAP PO (02:30)
[2017-10-02] MEDS ORDERED: ONDANSETRON 4 MG TAB PO (02:30)
[2017-10-02] MEDS ORDERED: METOCLOPRAMIDE 10 MG TAB PO (02:30)
[2017-10-02] MEDS: ACETAMINOPHEN 325 MG TAB PO ×2 (04:47→13:13)
[2017-10-02] MEDS: PIPER-TAZO 3.375 GM IV (PMX) 100 ML IVPB ×4 (05:21→23:56)
[2017-10-02 05:41] LABS: LACTIC ACID 1.2 mmol/L (0.5-2.0)
[2017-10-02 05:59] LABS: ALANINE AMINOTRANSFERASE 141 IU/L (13-69); ALBUMIN 3.4 g/dl (3.3-4.9); ALBUMIN/GLOBULIN RATIO 1.13; ALKALINE PHOSPHATASE 323 IU/L (42-121); ANION GAP 12 (8-16); ASPARTATE AMINO TRANSFERASE 68 IU/L (15-46); BILIRUBIN,INDIRECT 0.6 mg/dl (0-1.1); BILIRUBIN,TOTAL 0.6 mg/dl (0.2-1.3); BLOOD UREA NITROGEN 7 mg/dl (7-20); CALCIUM 7.9 mg/dl (8.4-10.2); CARBON DIOXIDE 21 mmol/L (21-31); CHLORIDE 107 mmol/L (97-110); CREATININE 0.65 mg/dl (0.44-1.00); GLUCOSE 112 mg/dl (70-220); POTASSIUM 4.4 mmol/L (3.5-5.1); SODIUM 136 mmol/L (135-144); TOTAL PROTEIN 6.4 g/dl (6.1-8.1)
[2017-10-02 07:28] LABS: WHITE BLOOD COUNT 1.9 10^3/ul (4.8-10.8)
[2017-10-02 07:28] LABS: ABNORMAL IP MESSAGE 1; HEMATOCRIT 32.3 % (37.0-47.0); HEMOGLOBIN 10.7 g/dl (12.0-16.0); MEAN CORPUSCULAR HEMOGLOBIN 31.9 pg (29.0-33.0); MEAN CORPUSCULAR HGB CONC 33.1 g/dl (32.0-37.0); MEAN CORPUSCULAR VOLUME 96.4 fl (82.0-101.0); MEAN PLATELET VOLUME 9.2 fl (7.4-10.4); NUCLEATED RED BLOOD CELLS% 1.6 /100WBC (0.0-0.0); PLATELET COUNT 429 10^3/UL (140-415); RED BLOOD COUNT 3.35 10^6/ul (4.20-5.40); RED CELL DISTRIBUTION WIDTH 15.6 % (11.5-14.5)
[2017-10-02 07:29] LABS: ADD MAN DIFF? YES; POSITIVE DIFF @See below
[2017-10-02] MEDS: HYDROmorphONE 0.5 MG/0.5 ML SYG IV ×3 (08:48→22:44)
[2017-10-02] MEDS: ENOXAPARIN 40 MG/0.4 ML SYG SC (08:54)
[2017-10-02] MEDS: SENNA TAB PO ×2 (08:54→20:50)
[2017-10-02] MEDS: DOCUSATE SODIUM 100 MG CAP PO ×2 (08:54→20:50)
[2017-10-02 09:39] LABS: ANISOCYTOSIS 1+ (0-0); BAND NEUTROPHILS #M 0.3 10^3/ul (0.0-0.6); BAND NEUTROPHILS % (M) 20 % (0-4); ERYTHROBLAST% (NRBC) (M) 4 % (0-0); GIANT THROMBO% (M) 1 % (0-0); LYMPHOCYTES #M 0.7 10^3/ul (0.8-2.9); LYMPHOCYTES % (M) 38 % (15-51); MONOCYTE #M 0.3 10^3/ul (0.3-0.9); MONOCYTES % (M) 20 % (0-11); MYELOCYTES % (M) 1 % (0-0); PLATELET ESTIMATE NORMAL; POLYCHROMASIA 2+ (0-0); SEG NEUT #M 0.4 10^3/ul (1.6-7.5); SEGMENTED NEUTROPHILS (M) % 21 % (39-77); SMUDGE%M 4 % (0-0)
[2017-10-02] MEDS: SOD CHLORIDE 0.9% 100 ML (10:27)
[2017-10-02] MEDS: IOHEXOL 300MG/ML 150 ML BTL (10:28)
[2017-10-02] MEDS: ONDANSETRON 4 MG INJ IV ×2 (11:46→22:54)
[2017-10-02] MEDS: VANCOMYCIN 1 GM 250 ML IVPB (13:14)
[2017-10-02] MEDS ORDERED: AMIKACIN IV PER PHARMACY XX (13:30)
[2017-10-02] MEDS: AMIKACIN 400 MG in SOD CHLORIDE 0.9% 100 ML IVPB ×2 (15:41→22:37)
[2017-10-02] MEDS: SOD CHLORIDE 0.9% 1,000 ML IV (16:44)
[2017-10-02] MEDS: FILGRASTIM 300 MCG INJ SC (17:27)
[2017-10-03] MEDS: VANCOMYCIN 1 GM 250 ML IVPB (01:10)
[2017-10-03] MEDS: ACETAMINOPHEN 325 MG TAB PO ×2 (02:03→20:13)
[2017-10-03] MEDS: PIPER-TAZO 3.375 GM IV (PMX) 100 ML IVPB ×3 (05:52→17:56)
[2017-10-03 07:29] LABS: WHITE BLOOD COUNT 8.9 10^3/ul (4.8-10.8)
[2017-10-03 07:29] LABS: ABNORMAL IP MESSAGE 1; HEMATOCRIT 29.2 % (37.0-47.0); HEMOGLOBIN 9.9 g/dl (12.0-16.0); MEAN CORPUSCULAR HEMOGLOBIN 32.6 pg (29.0-33.0); MEAN CORPUSCULAR HGB CONC 33.9 g/dl (32.0-37.0); MEAN CORPUSCULAR VOLUME 96.1 fl (82.0-101.0); MEAN PLATELET VOLUME 9.5 fl (7.4-10.4); NUCLEATED RED BLOOD CELLS% 0.2 /100WBC (0.0-0.0); PLATELET COUNT 331 10^3/UL (140-415); RED BLOOD COUNT 3.04 10^6/ul (4.20-5.40); RED CELL DISTRIBUTION WIDTH 15.6 % (11.5-14.5)
[2017-10-03 07:33] LABS: ADD MAN DIFF? YES; POSITIVE DIFF @See below
[2017-10-03] MEDS: AMIKACIN 400 MG in SOD CHLORIDE 0.9% 100 ML IVPB ×2 (07:42→15:54)
[2017-10-03] MEDS: HYDROmorphONE 0.5 MG/0.5 ML SYG IV ×3 (07:52→22:59)
[2017-10-03] MEDS: SENNA TAB PO ×2 (07:52→21:26)
[2017-10-03] MEDS: DOCUSATE SODIUM 100 MG CAP PO ×2 (07:52→21:26)
[2017-10-03] MEDS: ONDANSETRON 4 MG INJ IV ×3 (07:53→22:56)
[2017-10-03 08:14] LABS: ALANINE AMINOTRANSFERASE 94 IU/L (13-69); ALBUMIN 2.8 g/dl (3.3-4.9); ALBUMIN/GLOBULIN RATIO 0.93; ALKALINE PHOSPHATASE 221 IU/L (42-121); ANION GAP 8 (8-16); ASPARTATE AMINO TRANSFERASE 40 IU/L (15-46); BILIRUBIN,INDIRECT 0.4 mg/dl (0-1.1); BILIRUBIN,TOTAL 0.4 mg/dl (0.2-1.3); BLOOD UREA NITROGEN 8 mg/dl (7-20); CALCIUM 7.9 mg/dl (8.4-10.2); CARBON DIOXIDE 26 mmol/L (21-31); CHLORIDE 107 mmol/L (97-110); CREATININE 0.66 mg/dl (0.44-1.00); GLUCOSE 96 mg/dl (70-220); SODIUM 137 mmol/L (135-144); TOTAL PROTEIN 5.8 g/dl (6.1-8.1)
[2017-10-03 08:49] LABS: ANISOCYTOSIS 1+ (0-0); BAND NEUTROPHILS % (M) 46 % (0-4); BASOPHILS % (M) 1 % (0-2); GIANT THROMBO% (M) 1 % (0-0); LYMPHOCYTES #M 1.6 10^3/ul (0.8-2.9); LYMPHOCYTES % (M) 18 % (15-51); METAMYELOCYTES %M 1 % (0-0); MICROCYTOSIS 1+ (0-0); MONOCYTE #M 0.7 10^3/ul (0.3-0.9); MONOCYTES % (M) 8 % (0-11); PLATELET ESTIMATE NORMAL; POLYCHROMASIA 1+ (0-0); REACTIVE LYMPHOCYTES #M 0.3 10^3/ul (0.0-0.0); REACTIVE LYMPHOCYTES% (M) 4 % (0-0); SEG NEUT #M 2.3 10^3/ul (1.6-7.5); SEGMENTED NEUTROPHILS (M) % 22 % (39-77); SMUDGE%M 3 % (0-0)
[2017-10-03 11:54] LABS: HEMOGLOBIN A1C 5.5 % (0-5.9)
[2017-10-03] MEDS: AMIKACIN 500 MG in SOD CHLORIDE 0.9% 100 ML IVPB (22:56)
[2017-10-04] MEDS: PIPER-TAZO 3.375 GM IV (PMX) 100 ML IVPB ×4 (00:25→17:35)
[2017-10-04] MEDS: ONDANSETRON 4 MG INJ IV ×3 (05:01→22:25)
[2017-10-04] MEDS: HYDROmorphONE 0.5 MG/0.5 ML SYG IV ×3 (05:03→22:25)
[2017-10-04 05:31] LABS: ABNORMAL IP MESSAGE 1; HEMATOCRIT 28.1 % (37.0-47.0); HEMOGLOBIN 9.4 g/dl (12.0-16.0); MEAN CORPUSCULAR HEMOGLOBIN 31.6 pg (29.0-33.0); MEAN CORPUSCULAR HGB CONC 33.5 g/dl (32.0-37.0); MEAN CORPUSCULAR VOLUME 94.6 fl (82.0-101.0); MEAN PLATELET VOLUME 10.1 fl (7.4-10.4); NUCLEATED RED BLOOD CELLS% 0.2 /100WBC (0.0-0.0); PLATELET COUNT 324 10^3/UL (140-415); RED BLOOD COUNT 2.97 10^6/ul (4.20-5.40); RED CELL DISTRIBUTION WIDTH 15.8 % (11.5-14.5)
[2017-10-04 05:43] LABS: ADD MAN DIFF? YES; POSITIVE DIFF @See below
[2017-10-04 06:21] LABS: ALANINE AMINOTRANSFERASE 74 IU/L (13-69); ALBUMIN/GLOBULIN RATIO 0.96; ALKALINE PHOSPHATASE 253 IU/L (42-121); ANION GAP 11 (8-16); ASPARTATE AMINO TRANSFERASE 33 IU/L (15-46); BILIRUBIN,INDIRECT 0.3 mg/dl (0-1.1); BILIRUBIN,TOTAL 0.3 mg/dl (0.2-1.3); BLOOD UREA NITROGEN 6 mg/dl (7-20); CALCIUM 8.5 mg/dl (8.4-10.2); CARBON DIOXIDE 28 mmol/L (21-31); CHLORIDE 106 mmol/L (97-110); GLUCOSE 101 mg/dl (70-220); POTASSIUM 3.7 mmol/L (3.5-5.1); SODIUM 141 mmol/L (135-144); TOTAL PROTEIN 6.1 g/dl (6.1-8.1)
[2017-10-04] MEDS: AMIKACIN 500 MG in SOD CHLORIDE 0.9% 100 ML IVPB (07:24)
[2017-10-04 08:14] LABS: ANISOCYTOSIS 1+ (0-0); BAND NEUTROPHILS #M 2.7 10^3/ul (0.0-0.6); BAND NEUTROPHILS % (M) 23 % (0-4); LYMPHOCYTES #M 2.7 10^3/ul (0.8-2.9); LYMPHOCYTES % (M) 23 % (15-51); METAMYELOCYTES #M 0.1 10^3/ul (0.0-0.0); METAMYELOCYTES %M 1 % (0-0); MONOCYTE #M 1.6 10^3/ul (0.3-0.9); MONOCYTES % (M) 14 % (0-11); PLATELET ESTIMATE NORMAL; POLYCHROMASIA 1+ (0-0); REACTIVE LYMPHOCYTES #M 0.1 10^3/ul (0.0-0.0); REACTIVE LYMPHOCYTES% (M) 1 % (0-0); SEG NEUT #M 4.9 10^3/ul (1.6-7.5); SEGMENTED NEUTROPHILS (M) % 38 % (39-77)
[2017-10-04] MEDS: HYDROmorphONE 2 MG TAB PO (08:32)
[2017-10-04] MEDS: SENNA TAB PO ×2 (08:32→21:00)
[2017-10-04] MEDS: DOCUSATE SODIUM 100 MG CAP PO ×2 (08:32→21:00)
[2017-10-05] MEDS: PIPER-TAZO 3.375 GM IV (PMX) 100 ML IVPB ×4 (00:52→18:00)
[2017-10-05] MEDS: ONDANSETRON 4 MG INJ IV ×3 (04:50→19:03)
[2017-10-05] MEDS: HYDROmorphONE 0.5 MG/0.5 ML SYG IV ×3 (04:54→19:01)
[2017-10-05 05:45] LABS: WHITE BLOOD COUNT 11.9 10^3/ul (4.8-10.8)
[2017-10-05 05:45] LABS: ABNORMAL IP MESSAGE 1; HEMATOCRIT 27.9 % (37.0-47.0); HEMOGLOBIN 9.3 g/dl (12.0-16.0); MEAN CORPUSCULAR HEMOGLOBIN 31.3 pg (29.0-33.0); MEAN CORPUSCULAR HGB CONC 33.3 g/dl (32.0-37.0); MEAN CORPUSCULAR VOLUME 93.9 fl (82.0-101.0); MEAN PLATELET VOLUME 10.7 fl (7.4-10.4); NUCLEATED RED BLOOD CELLS% 0.2 /100WBC (0.0-0.0); PLATELET COUNT 338 10^3/UL (140-415); RED BLOOD COUNT 2.97 10^6/ul (4.20-5.40); RED CELL DISTRIBUTION WIDTH 15.6 % (11.5-14.5)
[2017-10-05 06:15] LABS: ALANINE AMINOTRANSFERASE 69 IU/L (13-69); ALBUMIN 3.1 g/dl (3.3-4.9); ALBUMIN/GLOBULIN RATIO 0.96; ALKALINE PHOSPHATASE 283 IU/L (42-121); ANION GAP 8 (8-16); ASPARTATE AMINO TRANSFERASE 40 IU/L (15-46); BILIRUBIN,INDIRECT 0.2 mg/dl (0-1.1); BILIRUBIN,TOTAL 0.2 mg/dl (0.2-1.3); BLOOD UREA NITROGEN 3 mg/dl (7-20); CALCIUM 8.4 mg/dl (8.4-10.2); CARBON DIOXIDE 31 mmol/L (21-31); CHLORIDE 103 mmol/L (97-110); CREATININE 0.61 mg/dl (0.44-1.00); GLUCOSE 96 mg/dl (70-220); POTASSIUM 3.3 mmol/L (3.5-5.1); SODIUM 139 mmol/L (135-144); TOTAL PROTEIN 6.3 g/dl (6.1-8.1)
[2017-10-05 06:22] LABS: ADD MAN DIFF? YES; POSITIVE DIFF @See below
[2017-10-05 07:51] LABS: ANISOCYTOSIS 1+ (0-0); BAND NEUTROPHILS #M 0.3 10^3/ul (0.0-0.6); BAND NEUTROPHILS % (M) 3 % (0-4); ERYTHROBLAST% (NRBC) (M) 1 % (0-0); GIANT THROMBO% (M) 1 % (0-0); LYMPHOCYTES % (M) 26 % (15-51); METAMYELOCYTES #M 0.1 10^3/ul (0.0-0.0); METAMYELOCYTES %M 1 % (0-0); MONOCYTES % (M) 9 % (0-11); MYELOCYTES #M 0.3 10^3/ul (0.0-0.0); MYELOCYTES % (M) 3 % (0-0); PLATELET ESTIMATE NORMAL; PROMYELOCYTES #M 0.1 10^3/ul (0-0); PROMYELOCYTES % (M) 1 % (0-0); REACTIVE LYMPHOCYTES #M 0.1 10^3/ul (0.0-0.0); REACTIVE LYMPHOCYTES% (M) 1 % (0-0); SEG NEUT #M 6.7 10^3/ul (1.6-7.5); SEGMENTED NEUTROPHILS (M) % 56 % (39-77); SMUDGE%M 19 % (0-0)
[2017-10-05] MEDS: SENNA TAB PO ×2 (12:40→21:17)
[2017-10-05] MEDS: DOCUSATE SODIUM 100 MG CAP PO ×2 (12:40→21:17)
[2017-10-05] MEDS: POTASSIUM CHLORIDE (SR) 20 MEQ TAB PO (21:17)
[2017-10-06] MEDS: ONDANSETRON 4 MG INJ IV (01:04)
[2017-10-06] MEDS: HYDROmorphONE 0.5 MG/0.5 ML SYG IV (01:05)
[2017-10-06] MEDS: PIPER-TAZO 3.375 GM IV (PMX) 100 ML IVPB ×2 (03:46)
[2017-10-06 05:55] LABS: ABNORMAL IP MESSAGE 1; HEMATOCRIT 27.5 % (37.0-47.0); HEMOGLOBIN 9.3 g/dl (12.0-16.0); MEAN CORPUSCULAR HEMOGLOBIN 32.4 pg (29.0-33.0); MEAN CORPUSCULAR HGB CONC 33.8 g/dl (32.0-37.0); MEAN CORPUSCULAR VOLUME 95.8 fl (82.0-101.0); MEAN PLATELET VOLUME 10.8 fl (7.4-10.4); NUCLEATED RED BLOOD CELLS% 0.7 /100WBC (0.0-0.0); PLATELET COUNT 323 10^3/UL (140-415); RED BLOOD COUNT 2.87 10^6/ul (4.20-5.40); RED CELL DISTRIBUTION WIDTH 15.7 % (11.5-14.5)
[2017-10-06 05:58] LABS: ADD MAN DIFF? YES; POSITIVE DIFF @See below
[2017-10-06 06:35] LABS: ANION GAP 13 (8-16); BLOOD UREA NITROGEN 6 mg/dl (7-20); CALCIUM 8.4 mg/dl (8.4-10.2); CARBON DIOXIDE 27 mmol/L (21-31); CHLORIDE 105 mmol/L (97-110); GLUCOSE 82 mg/dl (70-220); MAGNESIUM 1.8 mg/dl (1.7-2.5); POTASSIUM 5.1 mmol/L (3.5-5.1); SODIUM 140 mmol/L (135-144)
[2017-10-06 06:45] LABS: ALANINE AMINOTRANSFERASE 58 IU/L (13-69); ALBUMIN 3.1 g/dl (3.3-4.9); ALBUMIN/GLOBULIN RATIO 0.96; ALKALINE PHOSPHATASE 335 IU/L (42-121); ANION GAP 11 (8-16); ASPARTATE AMINO TRANSFERASE 41 IU/L (15-46); BILIRUBIN,INDIRECT 0.3 mg/dl (0-1.1); BILIRUBIN,TOTAL 0.3 mg/dl (0.2-1.3); BLOOD UREA NITROGEN 6 mg/dl (7-20); CALCIUM 8.4 mg/dl (8.4-10.2); CARBON DIOXIDE 29 mmol/L (21-31); CHLORIDE 105 mmol/L (97-110); CREATININE 0.64 mg/dl (0.44-1.00); GLUCOSE 90 mg/dl (70-220); SODIUM 141 mmol/L (135-144); TOTAL PROTEIN 6.3 g/dl (6.1-8.1)
[2017-10-06] MEDS: HYDROmorphONE 2 MG TAB PO ×2 (06:54→12:20)
[2017-10-06] MEDS: SENNA TAB PO (09:15)
[2017-10-06] MEDS: LEVOFLOXACIN 500 MG TAB PO (09:15)
[2017-10-06] MEDS: DOCUSATE SODIUM 100 MG CAP PO (09:15)
[2017-10-06 09:33] LABS: ANISOCYTOSIS 1+ (0-0); BAND NEUTROPHILS #M 0.7 10^3/ul (0.0-0.6); BAND NEUTROPHILS % (M) 6 % (0-4); GIANT THROMBO% (M) 1 % (0-0); LYMPHOCYTES #M 2.6 10^3/ul (0.8-2.9); LYMPHOCYTES % (M) 20 % (15-51); METAMYELOCYTES #M 0.6 10^3/ul (0.0-0.0); METAMYELOCYTES %M 5 % (0-0); MONOCYTE #M 1.6 10^3/ul (0.3-0.9); MONOCYTES % (M) 13 % (0-11); MYELOCYTES #M 0.2 10^3/ul (0.0-0.0); MYELOCYTES % (M) 2 % (0-0); PLATELET ESTIMATE NORMAL; POLYCHROMASIA 1+ (0-0); REACTIVE LYMPHOCYTES #M 0.3 10^3/ul (0.0-0.0); REACTIVE LYMPHOCYTES% (M) 3 % (0-0); SEG NEUT #M 6.7 10^3/ul (1.6-7.5); SEGMENTED NEUTROPHILS (M) % 51 % (39-77); SMUDGE%M 1 % (0-0)
[2017-10-08 14:06] LABS: AMIKACIN TROUGH <2.5 mg/L (4.0-8.0)
== END 2017-10-06 14:00 | disposition home or self-care (01) | DRG 872 ==
LOC: E/R 22:57 → MS1 10-02 01:17
DX: A41.51 Sepsis due to Escherichia coli [E. coli] (principal); C22.1 Intrahepatic bile duct carcinoma; C78.89 Secondary malignant neoplasm of other digestive organs; D70.9 Neutropenia, unspecified; R50.81 Fever presenting with conditions classified elsewhere; R65.20 Severe sepsis without septic shock
CPT/HCPCS: 36415; 71045; 74177; 76705; 80048; 80053; 80150; 81001; 81003; 83036; 83605; 83735; 84484; 85025; 85610; 85730; 87040; 87045; 87086; 93005; 99285-25

== ENCOUNTER 2017-11-11 15:55 | Emergency (ER) | payer BC ==
[2017-11-11] MEDS: HYDROmorphONE 1 MG/ML SYG IV (16:40)
[2017-11-11] MEDS: ONDANSETRON 4 MG INJ IV (16:41)
[2017-11-11] MEDS: SOD CHLORIDE 0.9% 1,000 ML IV (16:41)
[2017-11-11 17:07] LABS: HEMOGLOBIN 9.9 g/dl (12.0-16.0); MEAN CORPUSCULAR HEMOGLOBIN 34.4 pg (29.0-33.0); MEAN CORPUSCULAR HGB CONC 34.1 g/dl (32.0-37.0); MEAN CORPUSCULAR VOLUME 100.7 fl (82.0-101.0); MEAN PLATELET VOLUME 9.3 fl (7.4-10.4); NUCLEATED RED BLOOD CELLS% 0.9 /100WBC (0.0-0.0); PLATELET COUNT 358 10^3/UL (140-415); RED BLOOD COUNT 2.88 10^6/ul (4.20-5.40); RED CELL DISTRIBUTION WIDTH 17.9 % (11.5-14.5)
[2017-11-11 17:07] LABS: WHITE BLOOD COUNT 5.8 10^3/ul (4.8-10.8)
[2017-11-11 17:15] LABS: ANION GAP 16 (8-16); BLOOD UREA NITROGEN 10 mg/dl (7-20); CALCIUM 9.6 mg/dl (8.4-10.2); CARBON DIOXIDE 31 mmol/L (21-31); CHLORIDE 98 mmol/L (97-110); CREATININE 0.65 mg/dl (0.44-1.00); GLUCOSE 102 mg/dl (70-220); POTASSIUM 3.9 mmol/L (3.5-5.1); SODIUM 141 mmol/L (135-144)
[2017-11-11 17:28] LABS: ADD MAN DIFF? YES
[2017-11-11 17:54] LABS: ANISOCYTOSIS 1+ (0-0); BAND NEUTROPHILS #M 0.3 10^3/ul (0.0-0.6); BAND NEUTROPHILS % (M) 6 % (0-4); EOSINOPHILS % (M) 2 % (0-7); ERYTHROBLAST% (NRBC) (M) 1 % (0-0); GIANT THROMBO% (M) 1 % (0-0); LYMPHOCYTES #M 2.3 10^3/ul (0.8-2.9); LYMPHOCYTES % (M) 41 % (15-51); MONOCYTE #M 0.6 10^3/ul (0.3-0.9); MONOCYTES % (M) 11 % (0-11); PLATELET ESTIMATE NORMAL; REACTIVE LYMPHOCYTES #M 0.1 10^3/ul (0.0-0.0); REACTIVE LYMPHOCYTES% (M) 2 % (0-0); SEG NEUT #M 2.2 10^3/ul (1.6-7.5); SEGMENTED NEUTROPHILS (M) % 38 % (39-77); SMUDGE%M 28 % (0-0)
== END 2017-11-11 18:27 | disposition home or self-care (01) ==
LOC: E/R 15:55
DX: M89.8X9 Other specified disorders of bone, unspecified site (principal); T45.8X5A Adverse effect of other primarily systemic and hematological agents, initial encounter; C22.9 Malignant neoplasm of liver, not specified as primary or secondary; C25.9 Malignant neoplasm of pancreas, unspecified
CPT/HCPCS: 36415; 80048; 85025; 96374; 96375; 99284-25

== ENCOUNTER 2017-11-29 11:10 | Emergency (ER) | payer BC ==
[2017-11-29 12:12] LABS: ADD MAN DIFF? NO
[2017-11-29] MEDS: ONDANSETRON 4 MG INJ IV (12:18)
[2017-11-29] MEDS: HYDROmorphONE 1 MG/ML SYG IV (12:19)
[2017-11-29] MEDS: SOD CHLORIDE 0.9% 1,000 ML IV (12:19)
[2017-11-29 12:20] LABS: BASOPHILS % 0.3 % (0.0-2.0); HEMATOCRIT 26.2 % (37.0-47.0); HEMOGLOBIN 9.1 g/dl (12.0-16.0); LYMPHOCYTES # 0.9 10^3/ul (0.8-2.9); LYMPHOCYTES % 29.8 % (15.0-51.0); MEAN CORPUSCULAR HEMOGLOBIN 34.2 pg (29.0-33.0); MEAN CORPUSCULAR HGB CONC 34.7 g/dl (32.0-37.0); MEAN CORPUSCULAR VOLUME 98.5 fl (82.0-101.0); MEAN PLATELET VOLUME 10.2 fl (7.4-10.4); MONOCYTES % 0.7 % (0.0-11.0); NEUTROPHIL # 2.1 10^3/ul (1.6-7.5); NEUTROPHILS % 68.9 % (39.0-77.0); PLATELET COUNT 131 10^3/UL (140-415); RED BLOOD COUNT 2.66 10^6/ul (4.20-5.40)
[2017-11-29 12:37] LABS: POSITIVE DIFF @See below
[2017-11-29 12:39] LABS: INR 0.85; PROTIME 11.7 Sec (11.9-14.9); PT RATIO 0.9
[2017-11-29 13:16] LABS: ALBUMIN/GLOBULIN RATIO 0.94; ANION GAP 15 (8-16); CARBON DIOXIDE 27 mmol/L (21-31); CHLORIDE 100 mmol/L (97-110); POTASSIUM 3.7 mmol/L (3.5-5.1); SODIUM 138 mmol/L (135-144)
[2017-11-29 13:19] LABS: ALANINE AMINOTRANSFERASE 125 IU/L (13-69); ALBUMIN 3.7 g/dl (3.3-4.9); ALKALINE PHOSPHATASE 245 IU/L (42-121); ASPARTATE AMINO TRANSFERASE 110 IU/L (15-46); BILIRUBIN,INDIRECT 0.8 mg/dl (0-1.1); BILIRUBIN,TOTAL 0.8 mg/dl (0.2-1.3); BLOOD UREA NITROGEN 19 mg/dl (7-20); CALCIUM 9.2 mg/dl (8.4-10.2); CREATININE 0.58 mg/dl (0.44-1.00); GLUCOSE 96 mg/dl (70-220); LIPASE 48 U/L (23-300); TOTAL PROTEIN 7.6 g/dl (6.1-8.1)
== END 2017-11-29 13:46 | disposition home or self-care (01) ==
LOC: E/R 11:10
DX: C22.1 Intrahepatic bile duct carcinoma (principal); R11.2 Nausea with vomiting, unspecified; E86.0 Dehydration
CPT/HCPCS: 36415; 80053; 83690; 85025; 85610; 96374; 96375; 99284-25

== ENCOUNTER 2017-12-19 12:42 | Emergency (ER) | payer BC ==
[2017-12-19] MEDS: SOD CHLORIDE 0.9% 1,000 ML IV (16:16)
[2017-12-19] MEDS: ONDANSETRON 4 MG INJ IV (16:16)
[2017-12-19 16:26] LABS: URINE BLOOD (Dip) POC Trace-intact (NEGATIVE); URINE GLUCOSE (Dip) POC Negative (NEGATIVE); URINE KETONES (Dip) POC Negative (NEGATIVE); URINE LEUKOCYTE EST (Dip) POC Negative (NEGATIVE); URINE NITRITE (Dip) POC Positive (NEGATIVE); URINE TOTAL PROTEIN POC 1+ (NEGATIVE)
[2017-12-19 16:28] LABS: ADD MAN DIFF? NO
[2017-12-19 16:34] LABS: WHITE BLOOD COUNT 3.3 10^3/ul (4.8-10.8)
[2017-12-19 16:34] LABS: BASOPHILS % 0.3 % (0.0-2.0); EOSINOPHILS % 0.3 % (0.0-7.0); HEMATOCRIT 27.3 % (37.0-47.0); HEMOGLOBIN 9.5 g/dl (12.0-16.0); LYMPHOCYTES % 29.2 % (15.0-51.0); MEAN CORPUSCULAR HEMOGLOBIN 34.1 pg (29.0-33.0); MEAN CORPUSCULAR HGB CONC 34.8 g/dl (32.0-37.0); MEAN CORPUSCULAR VOLUME 97.8 fl (82.0-101.0); MEAN PLATELET VOLUME 9.5 fl (7.4-10.4); MONOCYTES % 0.9 % (0.0-11.0); NEUTROPHIL # 2.3 10^3/ul (1.6-7.5); NEUTROPHILS % 69.3 % (39.0-77.0); PLATELET COUNT 138 10^3/UL (140-415); RED BLOOD COUNT 2.79 10^6/ul (4.20-5.40); RED CELL DISTRIBUTION WIDTH 15.3 % (11.5-14.5)
[2017-12-19] MEDS: KETOROLAC 30 MG INJ IV (16:54)
[2017-12-19 17:00] LABS: ALANINE AMINOTRANSFERASE 56 IU/L (13-69); ALBUMIN 3.8 g/dl (3.3-4.9); ALKALINE PHOSPHATASE 247 IU/L (42-121); ANION GAP 12 (5-13); ASPARTATE AMINO TRANSFERASE 65 IU/L (15-46); BILIRUBIN,INDIRECT 0.8 mg/dl (0-1.1); BILIRUBIN,TOTAL 0.8 mg/dl (0.2-1.3); BLOOD UREA NITROGEN 16 mg/dl (7-20); CALCIUM 9.5 mg/dl (8.4-10.2); CARBON DIOXIDE 28 mmol/L (21-31); CHLORIDE 93 mmol/L (97-110); CREATININE 0.62 mg/dl (0.44-1.00); GLUCOSE 102 mg/dl (70-220); LIPASE 92 U/L (23-300); POTASSIUM 3.9 mmol/L (3.5-5.1); SODIUM 133 mmol/L (135-144); TOTAL PROTEIN 7.6 g/dl (6.1-8.1)
[2017-12-19] MEDS: CEFTRIAXONE 1 GM/50 ML (PMX) 50 ML IVPB (17:01)
[2017-12-19 17:17] LABS: Estimated GFR > 60 mL/min (>60)
== END 2017-12-19 18:03 | disposition home or self-care (01) ==
LOC: E/R 12:42
DX: N39.0 Urinary tract infection, site not specified (principal); E86.0 Dehydration; D61.818 Other pancytopenia; R94.5 Abnormal results of liver function studies; C25.9 Malignant neoplasm of pancreas, unspecified; C22.9 Malignant neoplasm of liver, not specified as primary or secondary
CPT/HCPCS: 36415; 80053; 81003; 81025; 83690; 85025; 87086; 96374; 96375; 99284-25

== ENCOUNTER 2017-12-22 04:45 | Emergency (ER) | payer BC ==
[2017-12-22] MEDS: LIDOCAINE 2% VISC 15 ML CUP PO (05:17)
[2017-12-22] MEDS: ACETAMINOPHEN 500 MG TAB PO (05:17)
== END 2017-12-22 06:01 | disposition home or self-care (01) ==
LOC: E/R 04:45
DX: J02.9 Acute pharyngitis, unspecified (principal); D01.7 Carcinoma in situ of other specified digestive organs; D01.5 Carcinoma in situ of liver, gallbladder and bile ducts
CPT/HCPCS: 87880; 99283

== ENCOUNTER 2018-01-21 16:09 | Inpatient (IN) | payer BC ==
[2018-01-21] MEDS: ACETAMINOPHEN 500 MG TAB PO (16:42)
[2018-01-21] MEDS: SODIUM CHLORIDE 0.9% 1L BAG IV* (16:43)
[2018-01-21] MEDS: CEFEPIME 2GM/50 ML (PMX) 50 ML IVPB (16:43)
[2018-01-21 16:49] LABS: WHITE BLOOD COUNT 13.3 10^3/ul (4.8-10.8)
[2018-01-21 16:49] LABS: ABNORMAL IP MESSAGE 1; HEMATOCRIT 30.7 % (37.0-47.0); HEMOGLOBIN 10.2 g/dl (12.0-16.0); MEAN CORPUSCULAR HEMOGLOBIN 34.8 pg (29.0-33.0); MEAN CORPUSCULAR HGB CONC 33.2 g/dl (32.0-37.0); MEAN CORPUSCULAR VOLUME 104.8 fl (82.0-101.0); MEAN PLATELET VOLUME 10.2 fl (7.4-10.4); PLATELET COUNT 129 10^3/UL (140-415); RED BLOOD COUNT 2.93 10^6/ul (4.20-5.40); RED CELL DISTRIBUTION WIDTH 18.8 % (11.5-14.5)
[2018-01-21 16:54] LABS: ADD MAN DIFF? YES; POSITIVE DIFF @See below
[2018-01-21 17:08] LABS: INR 1.11; PROTIME 14.5 Sec (11.9-14.9); PT RATIO 1.1
[2018-01-21] MEDS: VANCOMYCIN 1 GM (PMX) 250 ML IVPB (17:08)
[2018-01-21 17:09] LABS: PARTIAL THROMBOPLASTIN TIME 31.7 Sec (23.0-35.0)
[2018-01-21 17:12] LABS: ALANINE AMINOTRANSFERASE 56 IU/L (13-69); ALBUMIN/GLOBULIN RATIO 1.25; ALKALINE PHOSPHATASE 247 IU/L (42-121); ANION GAP 14 (5-13); ASPARTATE AMINO TRANSFERASE 67 IU/L (15-46); BILIRUBIN,INDIRECT 0.6 mg/dl (0-1.1); BILIRUBIN,TOTAL 0.6 mg/dl (0.2-1.3); BLOOD UREA NITROGEN 22 mg/dl (7-20); CALCIUM 8.6 mg/dl (8.4-10.2); CARBON DIOXIDE 25 mmol/L (21-31); CHLORIDE 99 mmol/L (97-110); Estimated GFR > 60 mL/min (>60); GLUCOSE 118 mg/dl (70-220); POTASSIUM 3.9 mmol/L (3.5-5.1); SODIUM 138 mmol/L (135-144); TOTAL PROTEIN 7.2 g/dl (6.1-8.1)
[2018-01-21 17:23] LABS: TROPONIN-I < 0.012 ng/ml (0.000-0.120)
[2018-01-21 18:13] LABS: ANISOCYTOSIS 2+ (0-0); BAND NEUTROPHILS #M 0.7 10^3/ul (0.0-0.6); BAND NEUTROPHILS % (M) 6 % (0-4); BASOPHIL #M 0.1 10^3/ul (0.0-0.0); BASOPHILS % (M) 1 % (0-2); GIANT THROMBO% (M) 2 % (0-0); HYPOCHROMASIA 1+ (0-0); LYMPHOCYTES #M 0.3 10^3/ul (0.8-2.9); LYMPHOCYTES % (M) 3 % (15-51); MONOCYTE #M 1.4 10^3/ul (0.3-0.9); MONOCYTES % (M) 11 % (0-11); PLATELET ESTIMATE DECREASED; POLYCHROMASIA 1+ (0-0); SEG NEUT #M 10.6 10^3/ul (1.6-7.5); SEGMENTED NEUTROPHILS (M) % 79 % (39-77); SMUDGE%M 2 % (0-0)
[2018-01-21 19:28] LABS: ADD UMIC YES; UR ASCORBIC ACID NEGATIVE (NEGATIVE); UR BACTERIA FEW /HPF (NONE SEEN); UR BILIRUBIN (Dip) NEGATIVE (NEGATIVE); UR BLOOD (Dip) NEGATIVE (NEGATIVE); UR CLARITY CLEAR (CLEAR); UR COLOR YELLOW (YELLOW); UR GLUCOSE (Dip) NEGATIVE (NEGATIVE); UR KETONES (Dip) TRACE mg/dL (NEGATIVE); UR LEUKOCYTE ESTERASE (Dip) TRACE Leu/ul (NEGATIVE); UR NITRITE (Dip) NEGATIVE (NEGATIVE); UR RBC 4 /HPF (0-5); UR SPECIFIC GRAVITY (Dip) 1.017 (1.003-1.030); UR SQUAMOUS EPITHELIAL CELL FEW /HPF (FEW); UR TOTAL PROTEIN (Dip) NEGATIVE (NEGATIVE); UR UROBILINOGEN (Dip) 1+ mg/dL (NEGATIVE); UR WBC 8 /HPF (0-5)
[2018-01-21] MEDS ORDERED: HYDROCODONE/APAP (5/325) TAB PO (21:00)
[2018-01-21] MEDS: ONDANSETRON 4 MG INJ IV (22:56)
[2018-01-21] MEDS: HYDROCODONE/APAP (5/325) TAB PO (22:57)
[2018-01-21 23:03] LABS: LACTIC ACID 1.2 mmol/L (0.5-2.0)
[2018-01-22] MEDS ORDERED: NACL 0.9% 3 ML SYG IV
[2018-01-22] MEDS: SOD CHLORIDE 0.9% 1,000 ML IV (04:28)
[2018-01-22 05:31] LABS: ADD MAN DIFF? NO
[2018-01-22 05:41] LABS: ABNORMAL IP MESSAGE 1; BASOPHILS % 0.1 % (0.0-2.0); HEMATOCRIT 26.6 % (37.0-47.0); HEMOGLOBIN 8.9 g/dl (12.0-16.0); LYMPHOCYTES # 0.4 10^3/ul (0.8-2.9); LYMPHOCYTES % 4.3 % (15.0-51.0); MEAN CORPUSCULAR HEMOGLOBIN 35.6 pg (29.0-33.0); MEAN CORPUSCULAR HGB CONC 33.5 g/dl (32.0-37.0); MEAN CORPUSCULAR VOLUME 106.4 fl (82.0-101.0); MEAN PLATELET VOLUME 11.1 fl (7.4-10.4); MONOCYTE # 0.8 10^3/ul (0.3-0.9); MONOCYTES % 8.5 % (0.0-11.0); NEUTROPHIL # 7.8 10^3/ul (1.6-7.5); NEUTROPHILS % 86.4 % (39.0-77.0); PLATELET COUNT 101 10^3/UL (140-415); RED CELL DISTRIBUTION WIDTH 18.6 % (11.5-14.5)
[2018-01-22 05:45] LABS: POSITIVE DIFF @See below
[2018-01-22 06:13] LABS: ALANINE AMINOTRANSFERASE 53 IU/L (13-69); ALBUMIN 3.2 g/dl (3.3-4.9); ALBUMIN/GLOBULIN RATIO 1.18; ALKALINE PHOSPHATASE 191 IU/L (42-121); ANION GAP 9 (5-13); ASPARTATE AMINO TRANSFERASE 44 IU/L (15-46); BILIRUBIN,INDIRECT 0.3 mg/dl (0-1.1); BILIRUBIN,TOTAL 0.3 mg/dl (0.2-1.3); BLOOD UREA NITROGEN 20 mg/dl (7-20); CALCIUM 8.3 mg/dl (8.4-10.2); CARBON DIOXIDE 27 mmol/L (21-31); CHLORIDE 101 mmol/L (97-110); CREATININE 0.63 mg/dl (0.44-1.00); Estimated GFR > 60 mL/min (>60); GLUCOSE 98 mg/dl (70-220); MAGNESIUM 1.7 mg/dl (1.7-2.5); POTASSIUM 3.9 mmol/L (3.5-5.1); SODIUM 137 mmol/L (135-144); TOTAL PROTEIN 5.9 g/dl (6.1-8.1)
[2018-01-22] MEDS: HYDROCODONE/APAP (5/325) TAB PO ×3 (06:15→18:33)
[2018-01-22] MEDS: ONDANSETRON 4 MG INJ IV ×3 (06:17→18:25)
[2018-01-22] MEDS ORDERED: VANCOMYCIN IV PER PHARMACY XX (07:30)
[2018-01-22] MEDS ORDERED: HEPARIN 5,000 UNIT/0.5 ML VIAL ×2 (08:27→20:03)
[2018-01-22] MEDS: CEFEPIME 1GM/50 ML (PMX) 50 ML IVPB ×2 (08:32→20:20)
[2018-01-22] MEDS: VANCOMYCIN 500MG/NS (PMX) 100 ML IVPB ×2 (08:33→18:21)
[2018-01-22] MEDS: HEPARIN 5,000 UNIT/1 ML VIAL SC ×2 (08:34→20:19)
[2018-01-22] MEDS ORDERED: CEFTRIAXONE 1 GM/50 ML (PMX) 50 ML IVPB (09:00)
[2018-01-22] MEDS ORDERED: morphine 4 MG/ML VIAL IV (10:00)
[2018-01-22] MEDS: ACETAMINOPHEN 325 MG TAB PO (13:58)
[2018-01-22] MEDS: BARIUM SULF 2% 450 ML BTL (BERRY SMOOTHIE) PO (18:00)
[2018-01-23] MEDS: VANCOMYCIN 500MG/NS (PMX) 100 ML IVPB ×2 (01:38→11:13)
[2018-01-23] MEDS: ONDANSETRON 4 MG INJ IV ×3 (04:16→18:32)
[2018-01-23] MEDS: HYDROCODONE/APAP (5/325) TAB PO ×3 (04:19→18:29)
[2018-01-23 08:56] LABS: ALANINE AMINOTRANSFERASE 40 IU/L (13-69); ALKALINE PHOSPHATASE 171 IU/L (42-121); ANION GAP 7 (5-13); ASPARTATE AMINO TRANSFERASE 35 IU/L (15-46); BILIRUBIN,INDIRECT 0.5 mg/dl (0-1.1); BILIRUBIN,TOTAL 0.5 mg/dl (0.2-1.3); BLOOD UREA NITROGEN 14 mg/dl (7-20); CALCIUM 8.1 mg/dl (8.4-10.2); CARBON DIOXIDE 30 mmol/L (21-31); CHLORIDE 103 mmol/L (97-110); CREATININE 0.57 mg/dl (0.44-1.00); Estimated GFR > 60 mL/min (>60); GLUCOSE 96 mg/dl (70-220); POTASSIUM 3.8 mmol/L (3.5-5.1); SODIUM 140 mmol/L (135-144)
[2018-01-23 09:02] LABS: VANCOMYCIN,TROUGH 9.3 ug/ml (10.0-20.0)
[2018-01-23] MEDS: BARIUM SULFATE 0.1% 450 ML BTL (VOLUMEN) PO ×2 (09:52→10:07)
[2018-01-23] MEDS: SOD CHLORIDE 0.9% 100 ML (10:55)
[2018-01-23] MEDS: IOHEXOL 100 ML (10:55)
[2018-01-23] MEDS: CEFEPIME 1GM/50 ML (PMX) 50 ML IVPB ×2 (11:14→21:00)
[2018-01-23] MEDS: morphine 2 MG INJ IV (12:57)
[2018-01-23] MEDS: VANCOMYCIN 750 MG in SOD CHLORIDE 0.9% 150 ML IVPB (18:27)
[2018-01-24] MEDS: VANCOMYCIN 750 MG in SOD CHLORIDE 0.9% 150 ML IVPB ×3 (01:26→18:22)
[2018-01-24] MEDS: HYDROCODONE/APAP (5/325) TAB PO ×3 (01:28→21:53)
[2018-01-24] MEDS: ONDANSETRON 4 MG INJ IV ×2 (01:28→21:52)
[2018-01-24 05:23] LABS: ADD MAN DIFF? NO
[2018-01-24 05:27] LABS: BASOPHILS % 0.1 % (0.0-2.0); EOSINOPHILS % 0.1 % (0.0-7.0); HEMATOCRIT 22.4 % (37.0-47.0); HEMOGLOBIN 7.5 g/dl (12.0-16.0); LYMPHOCYTES # 0.9 10^3/ul (0.8-2.9); LYMPHOCYTES % 11.1 % (15.0-51.0); MEAN CORPUSCULAR HEMOGLOBIN 34.9 pg (29.0-33.0); MEAN CORPUSCULAR HGB CONC 33.5 g/dl (32.0-37.0); MEAN CORPUSCULAR VOLUME 104.2 fl (82.0-101.0); MEAN PLATELET VOLUME 10.9 fl (7.4-10.4); NEUTROPHIL # 5.9 10^3/ul (1.6-7.5); NEUTROPHILS % 75.2 % (39.0-77.0); PLATELET COUNT 103 10^3/UL (140-415); RED BLOOD COUNT 2.15 10^6/ul (4.20-5.40); RED CELL DISTRIBUTION WIDTH 17.7 % (11.5-14.5)
[2018-01-24 05:27] LABS: WHITE BLOOD COUNT 7.8 10^3/ul (4.8-10.8)
[2018-01-24 05:46] LABS: INR 1.02; PROTIME 13.5 Sec (11.9-14.9); PT RATIO 1.1
[2018-01-24 05:51] LABS: ALANINE AMINOTRANSFERASE 31 IU/L (13-69); ALBUMIN/GLOBULIN RATIO 1.07; ALKALINE PHOSPHATASE 178 IU/L (42-121); ANION GAP 7 (5-13); ASPARTATE AMINO TRANSFERASE 36 IU/L (15-46); BILIRUBIN,INDIRECT 0.6 mg/dl (0-1.1); BILIRUBIN,TOTAL 0.6 mg/dl (0.2-1.3); BLOOD UREA NITROGEN 10 mg/dl (7-20); CALCIUM 8.1 mg/dl (8.4-10.2); CARBON DIOXIDE 30 mmol/L (21-31); CHLORIDE 101 mmol/L (97-110); Estimated GFR > 60 mL/min (>60); GLUCOSE 98 mg/dl (70-220); POTASSIUM 3.5 mmol/L (3.5-5.1); SODIUM 138 mmol/L (135-144); TOTAL PROTEIN 5.8 g/dl (6.1-8.1)
[2018-01-24] MEDS: CEFEPIME 1GM/50 ML (PMX) 50 ML IVPB ×2 (09:11→21:53)
[2018-01-24] MEDS: DEXTROSE 5%-0.45% NACL 1,000 ML IV ×2 (14:14→21:52)
[2018-01-24 14:34] LABS: IMMEDIATE SPIN CROSSMATCH 1 1
[2018-01-24] MEDS: INDOMETHACIN 50 MG SUPP PR (15:00)
[2018-01-24] MEDS: ACETAMINOPHEN 325 MG TAB PO (15:51)
[2018-01-24] MEDS ORDERED: IOHEXOL 300MG/ML 30 ML BTL (18:45)
[2018-01-24] MEDS ORDERED: OXYCODONE/ACETAMINOPHEN (5/325) TAB PO ×2 (19:00)
[2018-01-24] MEDS ORDERED: ONDANSETRON 4 MG INJ IV (19:00)
[2018-01-24] MEDS ORDERED: MEPERIDINE 25 MG INJ IV (19:00)
[2018-01-24] MEDS ORDERED: DIPHENHYDRAMINE 50 MG INJ IV (19:00)
[2018-01-24] MEDS ORDERED: HYDROmorphONE 1 MG/5 ML IV SYRINGE IV ×3 (19:00)
[2018-01-25] MEDS: VANCOMYCIN 750 MG in SOD CHLORIDE 0.9% 150 ML IVPB ×3 (01:44→18:22)
[2018-01-25] MEDS: HYDROCODONE/APAP (5/325) TAB PO ×5 (01:45→22:11)
[2018-01-25 06:03] LABS: ADD MAN DIFF? NO
[2018-01-25 06:07] LABS: BASOPHILS % 0.3 % (0.0-2.0); EOSINOPHILS % 0.1 % (0.0-7.0); HEMATOCRIT 27.4 % (37.0-47.0); HEMOGLOBIN 9.4 g/dl (12.0-16.0); LYMPHOCYTES # 1.3 10^3/ul (0.8-2.9); LYMPHOCYTES % 18.8 % (15.0-51.0); MEAN CORPUSCULAR HEMOGLOBIN 34.1 pg (29.0-33.0); MEAN CORPUSCULAR HGB CONC 34.3 g/dl (32.0-37.0); MEAN CORPUSCULAR VOLUME 99.3 fl (82.0-101.0); MEAN PLATELET VOLUME 11.3 fl (7.4-10.4); MONOCYTES % 13.3 % (0.0-11.0); NEUTROPHIL # 4.8 10^3/ul (1.6-7.5); NEUTROPHILS % 66.9 % (39.0-77.0); PLATELET COUNT 123 10^3/UL (140-415); RED BLOOD COUNT 2.76 10^6/ul (4.20-5.40); RED CELL DISTRIBUTION WIDTH 19.9 % (11.5-14.5)
[2018-01-25 06:07] LABS: WHITE BLOOD COUNT 7.1 10^3/ul (4.8-10.8)
[2018-01-25] MEDS: ONDANSETRON 4 MG INJ IV (06:50)
[2018-01-25 06:57] LABS: ALANINE AMINOTRANSFERASE 32 IU/L (13-69); ALBUMIN/GLOBULIN RATIO 1.11; ALKALINE PHOSPHATASE 192 IU/L (42-121); ANION GAP 9 (5-13); ASPARTATE AMINO TRANSFERASE 38 IU/L (15-46); BILIRUBIN,INDIRECT 0.5 mg/dl (0-1.1); BILIRUBIN,TOTAL 0.5 mg/dl (0.2-1.3); BLOOD UREA NITROGEN 13 mg/dl (7-20); CALCIUM 7.9 mg/dl (8.4-10.2); CARBON DIOXIDE 28 mmol/L (21-31); CHLORIDE 99 mmol/L (97-110); Estimated GFR > 60 mL/min (>60); GLUCOSE 136 mg/dl (70-220); POTASSIUM 3.2 mmol/L (3.5-5.1); SODIUM 136 mmol/L (135-144); TOTAL PROTEIN 5.7 g/dl (6.1-8.1)
[2018-01-25] MEDS: CEFEPIME 1GM/50 ML (PMX) 50 ML IVPB ×2 (09:06→21:12)
[2018-01-25] MEDS: POTASSIUM CHLORIDE (SR) 20 MEQ TAB PO ×2 (13:44→17:12)
[2018-01-25] MEDS: DEXTROSE 5%-0.45% NACL 1,000 ML IV ×2 (13:48→16:29)
[2018-01-25 18:04] LABS: VANCOMYCIN,TROUGH 14.4 ug/ml (10.0-20.0)
[2018-01-26] MEDS: VANCOMYCIN 750 MG in SOD CHLORIDE 0.9% 150 ML IVPB ×3 (02:00→17:50)
[2018-01-26 06:33] LABS: WHITE BLOOD COUNT 8.6 10^3/ul (4.8-10.8)
[2018-01-26 06:33] LABS: HEMATOCRIT 26.2 % (37.0-47.0); HEMOGLOBIN 8.7 g/dl (12.0-16.0); MEAN CORPUSCULAR HEMOGLOBIN 33.1 pg (29.0-33.0); MEAN CORPUSCULAR HGB CONC 33.2 g/dl (32.0-37.0); MEAN CORPUSCULAR VOLUME 99.6 fl (82.0-101.0); MEAN PLATELET VOLUME 11.2 fl (7.4-10.4); PLATELET COUNT 144 10^3/UL (140-415); RED BLOOD COUNT 2.63 10^6/ul (4.20-5.40); RED CELL DISTRIBUTION WIDTH 19.8 % (11.5-14.5)
[2018-01-26 06:37] LABS: ADD MAN DIFF? YES; POSITIVE DIFF @See below
[2018-01-26] MEDS: HYDROCODONE/APAP (5/325) TAB PO ×3 (06:43→19:15)
[2018-01-26 07:14] LABS: ANION GAP 7 (5-13); BLOOD UREA NITROGEN 6 mg/dl (7-20); CALCIUM 7.9 mg/dl (8.4-10.2); CARBON DIOXIDE 29 mmol/L (21-31); CHLORIDE 104 mmol/L (97-110); CREATININE 0.44 mg/dl (0.44-1.00); Estimated GFR > 60 mL/min (>60); GLUCOSE 103 mg/dl (70-220); MAGNESIUM 1.7 mg/dl (1.7-2.5); SODIUM 140 mmol/L (135-144)
[2018-01-26 07:15] LABS: ALANINE AMINOTRANSFERASE 32 IU/L (13-69); ALBUMIN 2.6 g/dl (3.3-4.9); ALKALINE PHOSPHATASE 205 IU/L (42-121); ASPARTATE AMINO TRANSFERASE 36 IU/L (15-46); BILIRUBIN,INDIRECT 0.4 mg/dl (0-1.1); BILIRUBIN,TOTAL 0.4 mg/dl (0.2-1.3); TOTAL PROTEIN 5.2 g/dl (6.1-8.1)
[2018-01-26 07:33] LABS: ANISOCYTOSIS 2+ (0-0); BAND NEUTROPHILS % (M) 1 % (0-4); EOSINOPHILS % (M) 1 % (0-7); LYMPHOCYTES #M 2.2 10^3/ul (0.8-2.9); LYMPHOCYTES % (M) 26 % (15-51); MONOCYTE #M 0.2 10^3/ul (0.3-0.9); MONOCYTES % (M) 3 % (0-11); PLATELET ESTIMATE NORMAL; POIKILOCYTOSIS 1+ (0-0); POLYCHROMASIA 1+ (0-0); SEG NEUT #M 5.9 10^3/ul (1.6-7.5); SEGMENTED NEUTROPHILS (M) % 69 % (39-77); SMUDGE%M 11 % (0-0); WBC MORPHOLOGY COMMENT @See below
[2018-01-26 07:34] LABS: POTASSIUM 3.7 mmol/L (3.5-5.1)
[2018-01-26 07:55] LABS: RBC MORPHOLOGY COMMENT @See below
[2018-01-26] MEDS: POLYETHYLENE GLYCOL 17 GM PACKET PO (09:28)
[2018-01-26] MEDS: CEFEPIME 1GM/50 ML (PMX) 50 ML IVPB ×2 (09:28→21:51)
[2018-01-26] MEDS: ONDANSETRON 4 MG INJ IV (11:41)
[2018-01-26] MEDS: ACETAMINOPHEN 325 MG TAB PO (12:13)
[2018-01-26] MEDS: DEXTROSE 5%-0.45% NACL 1,000 ML IV (14:27)
[2018-01-27] MEDS: HYDROCODONE/APAP (5/325) TAB PO ×2 (00:34→11:18)
[2018-01-27] MEDS: ONDANSETRON 4 MG INJ IV ×2 (00:34→11:14)
[2018-01-27] MEDS: morphine 2 MG INJ IV ×2 (02:58→14:39)
[2018-01-27] MEDS: VANCOMYCIN 750 MG in SOD CHLORIDE 0.9% 150 ML IVPB ×2 (02:58→10:08)
[2018-01-27 05:24] LABS: HEMOGLOBIN 8.5 g/dl (12.0-16.0); MEAN CORPUSCULAR HEMOGLOBIN 33.7 pg (29.0-33.0); MEAN CORPUSCULAR VOLUME 99.2 fl (82.0-101.0); MEAN PLATELET VOLUME 11.5 fl (7.4-10.4); PLATELET COUNT 158 10^3/UL (140-415); RED BLOOD COUNT 2.52 10^6/ul (4.20-5.40); RED CELL DISTRIBUTION WIDTH 18.8 % (11.5-14.5)
[2018-01-27 05:24] LABS: WHITE BLOOD COUNT 8.1 10^3/ul (4.8-10.8)
[2018-01-27 05:28] LABS: ADD MAN DIFF? YES; POSITIVE DIFF @See below
[2018-01-27 05:48] LABS: ANION GAP 9 (5-13); BLOOD UREA NITROGEN 3 mg/dl (7-20); CALCIUM 7.8 mg/dl (8.4-10.2); CARBON DIOXIDE 30 mmol/L (21-31); CHLORIDE 104 mmol/L (97-110); CREATININE 0.43 mg/dl (0.44-1.00); Estimated GFR > 60 mL/min (>60); GLUCOSE 95 mg/dl (70-220); POTASSIUM 3.4 mmol/L (3.5-5.1); SODIUM 143 mmol/L (135-144)
[2018-01-27] MEDS: DEXTROSE 5%-0.45% NACL 1,000 ML IV (07:45)
[2018-01-27 07:53] LABS: ANISOCYTOSIS 1+ (0-0); ERYTHROBLAST% (NRBC) (M) 1 % (0-0); LYMPHOCYTES #M 2.1 10^3/ul (0.8-2.9); LYMPHOCYTES % (M) 26 % (15-51); MONOCYTE #M 0.2 10^3/ul (0.3-0.9); MONOCYTES % (M) 3 % (0-11); OVALOCYTES 1+ (0-0); PLATELET ESTIMATE NORMAL; POLYCHROMASIA 1+ (0-0); SEGMENTED NEUTROPHILS (M) % 71 % (39-77); SMUDGE%M 19 % (0-0)
[2018-01-27] MEDS: POLYETHYLENE GLYCOL 17 GM PACKET PO (09:21)
[2018-01-27] MEDS: CEFEPIME 1GM/50 ML (PMX) 50 ML IVPB (09:21)
[2018-01-27] MEDS: POTASSIUM CHLORIDE (SR) 20 MEQ TAB PO (11:14)
[2018-01-27] MEDS: MAGNESIUM HYDROXIDE 30ML CUP PO (11:51)
[2018-01-27] MEDS: HEPARIN (100 UNITS/ML) 5 ML SYG CATHETER (15:14)
== END 2018-01-27 15:52 | disposition home or self-care (01) | DRG 919 ==
LOC: E/R 16:09 → PP2 18:13
PROVIDERS: Internal Medicine
PROC: 0F798DZ Dilation of Common Bile Duct with Intraluminal Device, Via Natural or Artificial Opening Endoscopic (ICD-10-PCS; principal; 2018-01-24 19:05)
PROC: 30233N1 Transfusion of Nonautologous Red Blood Cells into Peripheral Vein, Percutaneous Approach (ICD-10-PCS; 2018-01-24 19:05)
DX: T85.590A Other mechanical complication of bile duct prosthesis, initial encounter (principal); A41.9 Sepsis, unspecified organism; K83.09 Other cholangitis; N39.0 Urinary tract infection, site not specified; C25.9 Malignant neoplasm of pancreas, unspecified; C24.0 Malignant neoplasm of extrahepatic bile duct; C78.89 Secondary malignant neoplasm of other digestive organs; D53.1 Other megaloblastic anemias, not elsewhere classified; D63.0 Anemia in neoplastic disease; D69.59 Other secondary thrombocytopenia; K59.00 Constipation, unspecified; Z79.899 Other long term (current) drug therapy
CPT/HCPCS: 36415; 36430; 71045; 74018; 74170; 74176; 74330; 80048; 80053; 80076; 80202; 81001; 83605; 83735; 84100; 84484; 84703; 85025; 85610; 85730; 86850; 86900; 86901; 86920; 87040; 87086; 93005; 96374; 96375; 99285-25

== ENCOUNTER 2018-05-03 15:02 | Inpatient (IN) | payer BC ==
[2018-05-03] MEDS: SODIUM CHLORIDE 0.9% 1L BAG IV* (16:04)
[2018-05-03 16:05] LABS: ADD MAN DIFF? NO
[2018-05-03 16:09] LABS: ABNORMAL IP MESSAGE 1; BASOPHILS % 0.2 % (0.0-2.0); EOSINOPHILS % 0.4 % (0.0-7.0); HEMATOCRIT 35.7 % (37.0-47.0); LYMPHOCYTES # 0.4 10^3/ul (0.8-2.9); LYMPHOCYTES % 5.1 % (15.0-51.0); MEAN CORPUSCULAR HEMOGLOBIN 32.5 pg (29.0-33.0); MEAN CORPUSCULAR HGB CONC 33.6 g/dl (32.0-37.0); MEAN CORPUSCULAR VOLUME 96.7 fl (82.0-101.0); MEAN PLATELET VOLUME 9.1 fl (7.4-10.4); MONOCYTE # 0.6 10^3/ul (0.3-0.9); MONOCYTES % 6.6 % (0.0-11.0); NEUTROPHIL # 7.3 10^3/ul (1.6-7.5); NEUTROPHILS % 87.6 % (39.0-77.0); PLATELET COUNT 173 10^3/UL (140-415); RED BLOOD COUNT 3.69 10^6/ul (4.20-5.40); RED CELL DISTRIBUTION WIDTH 12.2 % (11.5-14.5)
[2018-05-03 16:09] LABS: WHITE BLOOD COUNT 8.4 10^3/ul (4.8-10.8)
[2018-05-03 16:12] LABS: POSITIVE DIFF @See below
[2018-05-03 16:25] LABS: ALANINE AMINOTRANSFERASE 141 IU/L (13-69); ALBUMIN 4.4 g/dl (3.3-4.9); ALKALINE PHOSPHATASE 426 IU/L (42-121); ANION GAP 14 (5-13); ASPARTATE AMINO TRANSFERASE 136 IU/L (15-46); BILIRUBIN,INDIRECT 0.4 mg/dl (0-1.1); BILIRUBIN,TOTAL 0.5 mg/dl (0.2-1.3); BLOOD UREA NITROGEN 15 mg/dl (7-20); CALCIUM 9.2 mg/dl (8.4-10.2); CARBON DIOXIDE 26 mmol/L (21-31); CHLORIDE 100 mmol/L (97-110); CREATININE 0.68 mg/dl (0.44-1.00); Estimated GFR > 60 mL/min (>60); GLUCOSE 136 mg/dl (70-220); POTASSIUM 3.6 mmol/L (3.5-5.1); SODIUM 140 mmol/L (135-144); TOTAL PROTEIN 8.4 g/dl (6.1-8.1)
[2018-05-03 16:28] LABS: INR 0.92; PROTIME 12.5 Sec (11.9-14.9)
[2018-05-03 16:29] LABS: PARTIAL THROMBOPLASTIN TIME 26.7 Sec (23.0-35.0)
[2018-05-03 16:33] LABS: ADD UMIC NO; UR ASCORBIC ACID NEGATIVE (NEGATIVE); UR BACTERIA FEW /HPF (NONE SEEN); UR BILIRUBIN (Dip) NEGATIVE (NEGATIVE); UR BLOOD (Dip) NEGATIVE (NEGATIVE); UR CLARITY SLIGHTLY CLOUDY (CLEAR); UR COLOR YELLOW (YELLOW); UR GLUCOSE (Dip) NEGATIVE (NEGATIVE); UR KETONES (Dip) NEGATIVE (NEGATIVE); UR LEUKOCYTE ESTERASE (Dip) NEGATIVE Leu/ul (NEGATIVE); UR NITRITE (Dip) NEGATIVE (NEGATIVE); UR RBC 1 /HPF (0-5); UR SPECIFIC GRAVITY (Dip) 1.011 (1.003-1.030); UR SQUAMOUS EPITHELIAL CELL FEW /HPF (FEW); UR TOTAL PROTEIN (Dip) NEGATIVE (NEGATIVE); UR UROBILINOGEN (Dip) NEGATIVE (NEGATIVE); UR WBC 1 /HPF (0-5)
[2018-05-03 16:37] LABS: TROPONIN-I < 0.012 ng/ml (0.000-0.120)
[2018-05-03 16:43] LABS: BAND NEUTROPHILS #M 0.7 10^3/ul (0.0-0.6); BAND NEUTROPHILS % (M) 9 % (0-4); LYMPHOCYTES #M 0.4 10^3/ul (0.8-2.9); LYMPHOCYTES % (M) 5 % (15-51); MONOCYTE #M 0.8 10^3/ul (0.3-0.9); MONOCYTES % (M) 10 % (0-11); PLASMAC%(M) 1 % (0); PLATELET ESTIMATE NORMAL; SEG NEUT #M 6.4 10^3/ul (1.6-7.5); SEGMENTED NEUTROPHILS (M) % 75 % (39-77)
[2018-05-03] MEDS: morphine 4 MG/ML VIAL IV (17:56)
[2018-05-03] MEDS: ONDANSETRON 4 MG INJ IV (17:56)
[2018-05-03] MEDS: PIPER-TAZO 3.375 GM IV (PMX) 100 ML IVPB (18:02)
[2018-05-03] MEDS ORDERED: ONDANSETRON 4 MG INJ IV ×2 (20:00→21:00)
[2018-05-03] MEDS ORDERED: DOCUSATE SODIUM 100 MG CAP PO (21:00)
[2018-05-03] MEDS ORDERED: NACL 0.9% 3 ML SYG IV (21:00)
[2018-05-03] MEDS ORDERED: BISACODYL (EC) 5 MG TAB PO (21:00)
[2018-05-03] MEDS: ACETAMINOPHEN 325 MG TAB PO (21:11)
[2018-05-03] MEDS: HYDROmorphONE 0.5 MG/0.5 ML SYG IV (21:35)
[2018-05-03 22:23] LABS: LACTIC ACID 0.7 mmol/L (0.5-2.0)
[2018-05-03] MEDS: IOHEXOL 300MG/ML 150 ML BTL (22:23)
[2018-05-03] MEDS: SOD CHLORIDE 0.9% 100 ML (22:23)
[2018-05-03] MEDS: ENOXAPARIN 40 MG/0.4 ML SYG SC (22:24)
[2018-05-03] MEDS: POTASSIUM CHLORIDE (SR) 20 MEQ TAB PO (23:39)
[2018-05-03] MEDS: MAGNESIUM SULFATE 1 GM/D5W 100 ML IVPB (23:40)
[2018-05-03] MEDS: IBUPROFEN 200 MG TAB PO (23:40)
[2018-05-04] MEDS: HYDROmorphONE 0.5 MG/0.5 ML SYG IV ×7 (02:12→20:48)
[2018-05-04] MEDS ORDERED: VANCOMYCIN IV PER PHARMACY XX (04:00)
[2018-05-04] MEDS: VANCOMYCIN 1 GM in 250 ML IVPB (04:58)
[2018-05-04] MEDS: PIPER-TAZO 3.375 GM IV (PMX) 100 ML IVPB ×2 (04:58→11:16)
[2018-05-04] MEDS: ACETAMINOPHEN 325 MG TAB PO ×2 (05:05→20:48)
[2018-05-04 08:36] LABS: ADD MAN DIFF? NO
[2018-05-04 08:43] LABS: WHITE BLOOD COUNT 7.4 10^3/ul (4.8-10.8)
[2018-05-04 08:43] LABS: BASOPHILS % 0.1 % (0.0-2.0); EOSINOPHILS # 0.4 10^3/ul (0.0-0.5); EOSINOPHILS % 4.9 % (0.0-7.0); HEMATOCRIT 31.6 % (37.0-47.0); HEMOGLOBIN 10.3 g/dl (12.0-16.0); LYMPHOCYTES # 1.2 10^3/ul (0.8-2.9); LYMPHOCYTES % 16.4 % (15.0-51.0); MEAN CORPUSCULAR HEMOGLOBIN 32.6 pg (29.0-33.0); MEAN CORPUSCULAR HGB CONC 32.6 g/dl (32.0-37.0); MONOCYTE # 0.7 10^3/ul (0.3-0.9); MONOCYTES % 9.5 % (0.0-11.0); NEUTROPHIL # 5.1 10^3/ul (1.6-7.5); NEUTROPHILS % 68.8 % (39.0-77.0); PLATELET COUNT 160 10^3/UL (140-415); RED BLOOD COUNT 3.16 10^6/ul (4.20-5.40); RED CELL DISTRIBUTION WIDTH 12.5 % (11.5-14.5)
[2018-05-04] MEDS: ENOXAPARIN 40 MG/0.4 ML SYG SC (09:05)
[2018-05-04 09:11] LABS: ALANINE AMINOTRANSFERASE 93 IU/L (13-69); ALBUMIN 3.3 g/dl (3.3-4.9); ALKALINE PHOSPHATASE 269 IU/L (42-121); ANION GAP 9 (5-13); ASPARTATE AMINO TRANSFERASE 77 IU/L (15-46); BILIRUBIN,INDIRECT 0.7 mg/dl (0-1.1); BLOOD UREA NITROGEN 10 mg/dl (7-20); CALCIUM 8.3 mg/dl (8.4-10.2); CARBON DIOXIDE 24 mmol/L (21-31); CHLORIDE 106 mmol/L (97-110); CREATININE 0.74 mg/dl (0.44-1.00); Estimated GFR > 60 mL/min (>60); GLUCOSE 92 mg/dl (70-220); MAGNESIUM 2.2 mg/dl (1.7-2.5); POTASSIUM 4.2 mmol/L (3.5-5.1); SODIUM 139 mmol/L (135-144); TOTAL PROTEIN 6.6 g/dl (6.1-8.1)
[2018-05-04 11:36] LABS: LIPASE 49 U/L (23-300)
[2018-05-04 11:36] LABS: AMYLASE 42 U/L (11-123)
[2018-05-04] MEDS: VANCOMYCIN 750 MG (PMX) 250 ML IVPB (13:18)
[2018-05-04] MEDS: PANTOPRAZOLE (EC) 40 MG TAB PO (17:48)
[2018-05-04] MEDS: oxyCODONE 5 MG TAB PO (23:00)
[2018-05-05] MEDS: HYDROmorphONE 0.5 MG/0.5 ML SYG IV ×3 (01:40→10:13)
[2018-05-05] MEDS: PANTOPRAZOLE (EC) 40 MG TAB PO ×2 (06:15→17:27)
[2018-05-05] MEDS: ENOXAPARIN 40 MG/0.4 ML SYG SC (08:57)
[2018-05-05 10:12] LABS: ADD MAN DIFF? NO
[2018-05-05 10:17] LABS: BASOPHILS % 0.1 % (0.0-2.0); EOSINOPHILS # 0.2 10^3/ul (0.0-0.5); EOSINOPHILS % 1.9 % (0.0-7.0); HEMATOCRIT 31.4 % (37.0-47.0); HEMOGLOBIN 10.5 g/dl (12.0-16.0); LYMPHOCYTES % 11.7 % (15.0-51.0); MEAN CORPUSCULAR HEMOGLOBIN 33.1 pg (29.0-33.0); MEAN CORPUSCULAR HGB CONC 33.4 g/dl (32.0-37.0); MEAN CORPUSCULAR VOLUME 99.1 fl (82.0-101.0); MEAN PLATELET VOLUME 9.7 fl (7.4-10.4); MONOCYTE # 0.7 10^3/ul (0.3-0.9); MONOCYTES % 8.6 % (0.0-11.0); NEUTROPHIL # 6.7 10^3/ul (1.6-7.5); NEUTROPHILS % 77.5 % (39.0-77.0); PLATELET COUNT 129 10^3/UL (140-415); RED BLOOD COUNT 3.17 10^6/ul (4.20-5.40); RED CELL DISTRIBUTION WIDTH 12.1 % (11.5-14.5)
[2018-05-05 10:17] LABS: WHITE BLOOD COUNT 8.6 10^3/ul (4.8-10.8)
[2018-05-05 10:39] LABS: ALANINE AMINOTRANSFERASE 76 IU/L (13-69); ALBUMIN 3.5 g/dl (3.3-4.9); ALBUMIN/GLOBULIN RATIO 0.94; ALKALINE PHOSPHATASE 303 IU/L (42-121); ANION GAP 9 (5-13); ASPARTATE AMINO TRANSFERASE 49 IU/L (15-46); BILIRUBIN,INDIRECT 0.6 mg/dl (0-1.1); BILIRUBIN,TOTAL 1.8 mg/dl (0.2-1.3); BLOOD UREA NITROGEN 9 mg/dl (7-20); CALCIUM 8.9 mg/dl (8.4-10.2); CARBON DIOXIDE 25 mmol/L (21-31); CHLORIDE 103 mmol/L (97-110); CREATININE 0.58 mg/dl (0.44-1.00); Estimated GFR > 60 mL/min (>60); GLUCOSE 82 mg/dl (70-220); MAGNESIUM 1.8 mg/dl (1.7-2.5); PHOSPHORUS 2.7 mg/dl (2.5-4.9); POTASSIUM 3.7 mmol/L (3.5-5.1); SODIUM 137 mmol/L (135-144); TOTAL PROTEIN 7.2 g/dl (6.1-8.1)
[2018-05-05 11:07] LABS: ADD MAN DIFF? NO
[2018-05-05 11:10] LABS: WHITE BLOOD COUNT 7.5 10^3/ul (4.8-10.8)
[2018-05-05 11:10] LABS: BASOPHILS % 0.1 % (0.0-2.0); EOSINOPHILS # 0.2 10^3/ul (0.0-0.5); EOSINOPHILS % 3.2 % (0.0-7.0); HEMATOCRIT 31.7 % (37.0-47.0); HEMOGLOBIN 10.5 g/dl (12.0-16.0); LYMPHOCYTES # 1.1 10^3/ul (0.8-2.9); LYMPHOCYTES % 14.9 % (15.0-51.0); MEAN CORPUSCULAR HEMOGLOBIN 33.2 pg (29.0-33.0); MEAN CORPUSCULAR HGB CONC 33.1 g/dl (32.0-37.0); MEAN CORPUSCULAR VOLUME 100.3 fl (82.0-101.0); MEAN PLATELET VOLUME 10.1 fl (7.4-10.4); MONOCYTE # 0.8 10^3/ul (0.3-0.9); MONOCYTES % 10.5 % (0.0-11.0); NEUTROPHIL # 5.3 10^3/ul (1.6-7.5); NEUTROPHILS % 70.9 % (39.0-77.0); PLATELET COUNT 139 10^3/UL (140-415); RED BLOOD COUNT 3.16 10^6/ul (4.20-5.40); RED CELL DISTRIBUTION WIDTH 12.1 % (11.5-14.5)
[2018-05-05 11:19] LABS: ALANINE AMINOTRANSFERASE 72 IU/L (13-69); ALBUMIN 3.5 g/dl (3.3-4.9); ALBUMIN/GLOBULIN RATIO 0.97; ALKALINE PHOSPHATASE 257 IU/L (42-121); ANION GAP 9 (5-13); ASPARTATE AMINO TRANSFERASE 51 IU/L (15-46); BILIRUBIN,INDIRECT 0.7 mg/dl (0-1.1); BILIRUBIN,TOTAL 1.9 mg/dl (0.2-1.3); BLOOD UREA NITROGEN 8 mg/dl (7-20); CALCIUM 8.7 mg/dl (8.4-10.2); CARBON DIOXIDE 25 mmol/L (21-31); CHLORIDE 106 mmol/L (97-110); CREATININE 0.55 mg/dl (0.44-1.00); Estimated GFR > 60 mL/min (>60); GLUCOSE 88 mg/dl (70-220); POTASSIUM 3.9 mmol/L (3.5-5.1); SODIUM 140 mmol/L (135-144); TOTAL PROTEIN 7.1 g/dl (6.1-8.1)
[2018-05-05 11:41] LABS: PHOSPHORUS 3.1 mg/dl (2.5-4.9)
[2018-05-05] MEDS: PIPER-TAZO 3.375 GM IV (PMX) 100 ML IVPB ×3 (12:52→23:12)
[2018-05-05] MEDS: HYDROmorphONE 1 MG/ML SYG IV ×2 (14:45→20:06)
[2018-05-05] MEDS: ZOLPIDEM 5 MG TAB PO (23:09)
[2018-05-06] MEDS: PIPER-TAZO 3.375 GM IV (PMX) 100 ML IVPB ×4 (05:09→23:45)
[2018-05-06] MEDS: HYDROmorphONE 1 MG/ML SYG IV ×4 (05:09→23:45)
[2018-05-06] MEDS: PANTOPRAZOLE (EC) 40 MG TAB PO ×2 (05:09→17:20)
[2018-05-06 08:15] LABS: ADD MAN DIFF? NO
[2018-05-06 08:24] LABS: BASOPHILS % 0.2 % (0.0-2.0); EOSINOPHILS # 0.2 10^3/ul (0.0-0.5); EOSINOPHILS % 3.4 % (0.0-7.0); HEMATOCRIT 31.8 % (37.0-47.0); HEMOGLOBIN 10.6 g/dl (12.0-16.0); LYMPHOCYTES # 1.4 10^3/ul (0.8-2.9); LYMPHOCYTES % 24.2 % (15.0-51.0); MEAN CORPUSCULAR HEMOGLOBIN 32.9 pg (29.0-33.0); MEAN CORPUSCULAR HGB CONC 33.3 g/dl (32.0-37.0); MEAN CORPUSCULAR VOLUME 98.8 fl (82.0-101.0); MEAN PLATELET VOLUME 9.9 fl (7.4-10.4); MONOCYTE # 0.7 10^3/ul (0.3-0.9); MONOCYTES % 12.4 % (0.0-11.0); NEUTROPHIL # 3.6 10^3/ul (1.6-7.5); NEUTROPHILS % 59.6 % (39.0-77.0); PLATELET COUNT 167 10^3/UL (140-415); RED BLOOD COUNT 3.22 10^6/ul (4.20-5.40); RED CELL DISTRIBUTION WIDTH 11.9 % (11.5-14.5)
[2018-05-06 08:32] LABS: ALANINE AMINOTRANSFERASE 60 IU/L (13-69); ALBUMIN 3.6 g/dl (3.3-4.9); ALBUMIN/GLOBULIN RATIO 0.94; ALKALINE PHOSPHATASE 260 IU/L (42-121); ANION GAP 12 (5-13); ASPARTATE AMINO TRANSFERASE 46 IU/L (15-46); BILIRUBIN,INDIRECT 0.8 mg/dl (0-1.1); BILIRUBIN,TOTAL 2.4 mg/dl (0.2-1.3); BLOOD UREA NITROGEN 7 mg/dl (7-20); CARBON DIOXIDE 26 mmol/L (21-31); CHLORIDE 105 mmol/L (97-110); CREATININE 0.61 mg/dl (0.44-1.00); Estimated GFR > 60 mL/min (>60); GLUCOSE 91 mg/dl (70-220); POTASSIUM 3.6 mmol/L (3.5-5.1); SODIUM 143 mmol/L (135-144); TOTAL PROTEIN 7.4 g/dl (6.1-8.1)
[2018-05-06 08:36] LABS: MAGNESIUM 1.8 mg/dl (1.7-2.5)
[2018-05-06 08:36] LABS: PHOSPHORUS 3.7 mg/dl (2.5-4.9)
[2018-05-06] MEDS: ENOXAPARIN 40 MG/0.4 ML SYG SC (09:21)
[2018-05-06] MEDS: HYDROmorphONE 2 MG TAB PO ×2 (12:55→17:20)
[2018-05-07] MEDS: HYDROmorphONE 1 MG/ML SYG IV (03:23)
[2018-05-07] MEDS: PIPER-TAZO 3.375 GM IV (PMX) 100 ML IVPB ×3 (06:02→18:08)
[2018-05-07] MEDS: PANTOPRAZOLE (EC) 40 MG TAB PO ×2 (06:02→18:08)
[2018-05-07 06:30] LABS: ADD MAN DIFF? NO
[2018-05-07 06:50] LABS: BASOPHILS % 0.4 % (0.0-2.0); EOSINOPHILS # 0.4 10^3/ul (0.0-0.5); EOSINOPHILS % 8.2 % (0.0-7.0); HEMATOCRIT 28.2 % (37.0-47.0); HEMOGLOBIN 9.5 g/dl (12.0-16.0); LYMPHOCYTES # 1.3 10^3/ul (0.8-2.9); LYMPHOCYTES % 28.8 % (15.0-51.0); MEAN CORPUSCULAR HGB CONC 33.7 g/dl (32.0-37.0); MEAN CORPUSCULAR VOLUME 97.9 fl (82.0-101.0); MEAN PLATELET VOLUME 9.7 fl (7.4-10.4); MONOCYTE # 0.6 10^3/ul (0.3-0.9); MONOCYTES % 12.7 % (0.0-11.0); NEUTROPHIL # 2.3 10^3/ul (1.6-7.5); NEUTROPHILS % 49.7 % (39.0-77.0); PLATELET COUNT 161 10^3/UL (140-415); RED BLOOD COUNT 2.88 10^6/ul (4.20-5.40); RED CELL DISTRIBUTION WIDTH 11.8 % (11.5-14.5)
[2018-05-07 06:50] LABS: WHITE BLOOD COUNT 4.7 10^3/ul (4.8-10.8)
[2018-05-07 07:41] LABS: ALANINE AMINOTRANSFERASE 53 IU/L (13-69); ALBUMIN 3.2 g/dl (3.3-4.9); ALBUMIN/GLOBULIN RATIO 0.88; ALKALINE PHOSPHATASE 253 IU/L (42-121); ANION GAP 10 (5-13); ASPARTATE AMINO TRANSFERASE 43 IU/L (15-46); BILIRUBIN,INDIRECT 0.6 mg/dl (0-1.1); BILIRUBIN,TOTAL 1.8 mg/dl (0.2-1.3); BLOOD UREA NITROGEN 7 mg/dl (7-20); CALCIUM 8.6 mg/dl (8.4-10.2); CARBON DIOXIDE 28 mmol/L (21-31); CHLORIDE 103 mmol/L (97-110); CREATININE 0.51 mg/dl (0.44-1.00); Estimated GFR > 60 mL/min (>60); GLUCOSE 93 mg/dl (70-220); POTASSIUM 3.4 mmol/L (3.5-5.1); SODIUM 141 mmol/L (135-144); TOTAL PROTEIN 6.8 g/dl (6.1-8.1)
[2018-05-07] MEDS: ENOXAPARIN 40 MG/0.4 ML SYG SC (09:51)
[2018-05-07] MEDS: HYDROmorphONE 2 MG TAB PO ×2 (09:53→16:32)
[2018-05-07] MEDS: POTASSIUM CHLORIDE (SR) 20 MEQ TAB PO (15:13)
[2018-05-07] MEDS: HEPARIN (100 UNITS/ML) 5 ML SYG CATHETER (19:43)
== END 2018-05-07 19:55 | disposition home or self-care (01) | DRG 437 ==
LOC: TEL 19:57 → E/R 15:02 → 2NE 05-06 15:20
DX: C22.1 Intrahepatic bile duct carcinoma (principal); K52.9 Noninfective gastroenteritis and colitis, unspecified
CPT/HCPCS: 36415; 71045; 74176; 74177; 76705; 80053; 81001; 81003; 82150; 83036; 83605; 83690; 83735; 84100; 84484; 84703; 85025; 85610; 85730; 87040; 87086; 87400; 93005; 96374; 96375; 99291-25

== ENCOUNTER 2018-07-15 18:13 | Emergency (ER) | payer BC ==
[2018-07-15 19:01] LABS: ADD UMIC YES; UR ASCORBIC ACID NEGATIVE (NEGATIVE); UR BILIRUBIN (Dip) NEGATIVE (NEGATIVE); UR BLOOD (Dip) 1+ mg/dL (NEGATIVE); UR CLARITY CLEAR (CLEAR); UR COLOR STRAW (YELLOW); UR GLUCOSE (Dip) NEGATIVE (NEGATIVE); UR KETONES (Dip) NEGATIVE (NEGATIVE); UR LEUKOCYTE ESTERASE (Dip) NEGATIVE Leu/ul (NEGATIVE); UR NITRITE (Dip) NEGATIVE (NEGATIVE); UR RBC 0 /HPF (0-5); UR SPECIFIC GRAVITY (Dip) 1.004 (1.003-1.030); UR TOTAL PROTEIN (Dip) NEGATIVE (NEGATIVE); UR UROBILINOGEN (Dip) NEGATIVE (NEGATIVE); UR WBC 0 /HPF (0-5)
[2018-07-15 19:04] LABS: ADD MAN DIFF? NO
[2018-07-15] MEDS: morphine 4 MG/ML VIAL IV (19:05)
[2018-07-15 19:06] LABS: WHITE BLOOD COUNT 13.8 10^3/ul (4.8-10.8)
[2018-07-15 19:06] LABS: BASOPHILS % 0.3 % (0.0-2.0); EOSINOPHILS # 0.1 10^3/ul (0.0-0.5); EOSINOPHILS % 0.7 % (0.0-7.0); HEMATOCRIT 32.9 % (37.0-47.0); HEMOGLOBIN 10.8 g/dl (12.0-16.0); LYMPHOCYTES # 1.9 10^3/ul (0.8-2.9); LYMPHOCYTES % 13.6 % (15.0-51.0); MEAN CORPUSCULAR HGB CONC 32.8 g/dl (32.0-37.0); MEAN CORPUSCULAR VOLUME 97.3 fl (82.0-101.0); MEAN PLATELET VOLUME 8.7 fl (7.4-10.4); NEUTROPHIL # 10.7 10^3/ul (1.6-7.5); NEUTROPHILS % 77.8 % (39.0-77.0); PLATELET COUNT 364 10^3/UL (140-415); RED BLOOD COUNT 3.38 10^6/ul (4.20-5.40); RED CELL DISTRIBUTION WIDTH 13.1 % (11.5-14.5)
[2018-07-15 19:24] LABS: ALANINE AMINOTRANSFERASE 83 IU/L (13-69); ALBUMIN 3.8 g/dl (3.3-4.9); ALKALINE PHOSPHATASE 393 IU/L (42-121); ANION GAP 9 (5-13); ASPARTATE AMINO TRANSFERASE 41 IU/L (15-46); BILIRUBIN,INDIRECT 0.4 mg/dl (0-1.1); BILIRUBIN,TOTAL 0.4 mg/dl (0.2-1.3); BLOOD UREA NITROGEN 8 mg/dl (7-20); CALCIUM 8.8 mg/dl (8.4-10.2); CARBON DIOXIDE 27 mmol/L (21-31); CHLORIDE 98 mmol/L (97-110); CREATININE 0.61 mg/dl (0.44-1.00); Estimated GFR > 60 mL/min (>60); GLUCOSE 124 mg/dl (70-220); LIPASE 251 U/L (23-300); SODIUM 134 mmol/L (135-144); TOTAL PROTEIN 7.6 g/dl (6.1-8.1)
[2018-07-15] MEDS: SOD CHLORIDE 0.9% 100 ML (19:45)
[2018-07-15] MEDS: IOHEXOL 300MG/ML 150 ML BTL (19:45)
[2018-07-16] MEDS: morphine 10 MG INJ IV (00:10)
[2018-07-16] MEDS: HYDROmorphONE 0.5 MG/0.5 ML SYG IV (01:56)
== END 2018-07-16 06:38 | disposition short-term general hospital (02) ==
LOC: E/R 07-16 06:38
DX: R10.32 Left lower quadrant pain (principal)
CPT/HCPCS: 36415; 74177; 80053; 81001; 81025; 83690; 85025; 96374; 96375; 96376; 99285-25

== ENCOUNTER 2018-07-19 15:31 | Emergency (ER) | payer BC ==
[2018-07-19 16:22] LABS: URINE BLOOD (Dip) POC Negative (NEGATIVE); URINE GLUCOSE (Dip) POC Negative (NEGATIVE); URINE KETONES (Dip) POC Negative (NEGATIVE); URINE LEUKOCYTE EST (Dip) POC Negative (NEGATIVE); URINE NITRITE (Dip) POC Negative (NEGATIVE); URINE TOTAL PROTEIN POC Negative (NEGATIVE)
[2018-07-19] MEDS: ONDANSETRON (ODT) 4 MG TAB ODT (16:36)
[2018-07-19] MEDS: HYDROmorphONE 2 MG/ML SYG IM (16:36)
== END 2018-07-19 17:10 | disposition home or self-care (01) ==
LOC: E/R 15:31
DX: R10.32 Left lower quadrant pain (principal); Z85.05 Personal history of malignant neoplasm of liver
CPT/HCPCS: 81003; 81025; 96372; 99284-25

== ENCOUNTER 2018-08-05 13:34 | Emergency (ER) | payer BC ==
[2018-08-05] MEDS: SOD CHLORIDE 0.9% 1,000 ML IV (15:31)
[2018-08-05 15:47] LABS: ADD MAN DIFF? NO
[2018-08-05 15:51] LABS: WHITE BLOOD COUNT 5.2 10^3/ul (4.8-10.8)
[2018-08-05 15:51] LABS: BASOPHILS % 0.4 % (0.0-2.0); EOSINOPHILS # 0.1 10^3/ul (0.0-0.5); EOSINOPHILS % 2.5 % (0.0-7.0); HEMATOCRIT 33.2 % (37.0-47.0); HEMOGLOBIN 10.8 g/dl (12.0-16.0); LYMPHOCYTES # 1.8 10^3/ul (0.8-2.9); LYMPHOCYTES % 34.2 % (15.0-51.0); MEAN CORPUSCULAR HEMOGLOBIN 31.6 pg (29.0-33.0); MEAN CORPUSCULAR HGB CONC 32.5 g/dl (32.0-37.0); MEAN CORPUSCULAR VOLUME 97.1 fl (82.0-101.0); MEAN PLATELET VOLUME 9.2 fl (7.4-10.4); MONOCYTE # 0.5 10^3/ul (0.3-0.9); MONOCYTES % 9.4 % (0.0-11.0); NEUTROPHIL # 2.8 10^3/ul (1.6-7.5); NEUTROPHILS % 53.3 % (39.0-77.0); PLATELET COUNT 216 10^3/UL (140-415); RED BLOOD COUNT 3.42 10^6/ul (4.20-5.40); RED CELL DISTRIBUTION WIDTH 13.1 % (11.5-14.5)
[2018-08-05] MEDS: HYDROmorphONE 1 MG/ML SYG IV (15:57)
[2018-08-05] MEDS: ONDANSETRON 4 MG INJ IV (15:57)
[2018-08-05 16:14] LABS: ALANINE AMINOTRANSFERASE 45 IU/L (13-69); ALBUMIN 3.9 g/dl (3.3-4.9); ALKALINE PHOSPHATASE 409 IU/L (42-121); ANION GAP 9 (5-13); ASPARTATE AMINO TRANSFERASE 63 IU/L (15-46); BILIRUBIN,INDIRECT 0.4 mg/dl (0-1.1); BILIRUBIN,TOTAL 0.4 mg/dl (0.2-1.3); BLOOD UREA NITROGEN 11 mg/dl (7-20); CALCIUM 9.1 mg/dl (8.4-10.2); CARBON DIOXIDE 30 mmol/L (21-31); CHLORIDE 102 mmol/L (97-110); CREATININE 0.64 mg/dl (0.44-1.00); Estimated GFR > 60 mL/min (>60); GLUCOSE 101 mg/dl (70-220); LIPASE 966 U/L (23-300); POTASSIUM 3.8 mmol/L (3.5-5.1); SODIUM 141 mmol/L (135-144); TOTAL PROTEIN 8.2 g/dl (6.1-8.1)
[2018-08-05] MEDS ORDERED: IOHEXOL 300MG/ML 150 ML BTL (16:29)
[2018-08-05] MEDS ORDERED: SOD CHLORIDE 0.9% 100 ML (16:29)
[2018-08-05] MEDS: HEPARIN (100 UNITS/ML) 5 ML SYG CATHETER (18:31)
== END 2018-08-05 18:39 | disposition home or self-care (01) ==
LOC: E/R 13:34
DX: K85.90 Acute pancreatitis without necrosis or infection, unspecified (principal); Z85.05 Personal history of malignant neoplasm of liver
CPT/HCPCS: 36415; 74177; 80053; 81025; 83690; 85025; 96374; 96375; 99285-25